=== PATIENT | female | born 1980 | race Caucasian/White ===

== ENCOUNTER → 2018-07-23 | Outpatient (CLI) | payer OTHER ==
[2018-07-23 14:51] LABS: Basophils % (A) 1 %; Eosinophils # (A) 0.1 k/uL (0-0.7); Eosinophils % (A) 3 %; HCT 33.5 % (34.0-46.0); HGB 10.4 gm/dL (11.4-16.0); Hypochromasia Moderate; Lymphocytes # (A) 1.4 k/uL (1.0-4.8); Lymphocytes % (A) 36 %; MCH 24.4 pg (25.0-35.0); MCHC 31.1 g/dL (31.0-37.0); MCV 78.3 fL (80.0-100.0); Mean Platelet Volume 6.2; Monocytes # (A) 0.2 k/uL (0-1.0); Monocytes % (A) 6 %; Neutrophils % (A) 52 %; Platelet Count 349 k/uL (150-450); RBC 4.28 m/uL (3.80-5.40); RDW 15.3 % (11.5-15.5); WBC 3.8 k/uL (3.8-10.6)
== END | disposition home or self-care (01) ==
LOC: LABPAT 13:45
PROVIDERS: ATTEND Obstetrics & Gynecology
DX: Z01.812 Encounter for preprocedural laboratory examination (principal)
CPT/HCPCS: 85025

== ENCOUNTER 2018-07-24 06:46 | Day surgery (SDC) | payer OTHER ==
[2018-07-23 13:11] VITALS: BMI 29.2
[~2018-07-24 06:46] MED LIST: DEXAMETHASONE SOD PHOSPHATE 10 MG/ML 1 ML VIAL IV ONE; HYDROmorphone 1 MG/ML 1 ML SYRINGE IVP PRN; LACTATED RINGERS 1,000 ML IV SCH; MIDAZOLAM 2 MG/2 ML VIAL IV PRN; ONDANSETRON 4 MG/2 ML VIAL IVP ONE; Pre Op ABX Message 1 EACH MISC MISCELLANE ONE; SCOPOLAMINE 1.5MG/72HR PATCH TRANSDERM ONE
[2018-07-24] MEDS ORDERED: LIDOCAINE 1% 20 ML VIAL (10MG/ML) FOR IV START INTRADERMA ONE (07:20)
--- NOTE | 2018-07-24 07:33 | P.HPOB ---
History of Present Illness H&P Date: 07/24/18 Chief Complaint: Menorrhagia 38 year old presents for D&C hysteroscopy and endometrial ablation with NovaSure. Review of Systems All systems: negative Constitutional: Denies chills, Denies fever Eyes: denies blurred vision, denies pain Ears, nose, mouth and throat: Denies headache, Denies sore throat Cardiovascular: Denies chest pain, Denies shortness of breath Respiratory: Denies cough Gastrointestinal: Denies abdominal pain, Denies diarrhea, Denies nausea, Denies vomiting Genitourinary: Denies dysuria, Denies hematuria Musculoskeletal: Denies myalgias Integumentary: Denies pruritus, Denies rash Neurological: Denies numbness, Denies weakness Psychiatric: Denies anxiety, Denies depression Endocrine: Denies fatigue, Denies weight change Past Medical History Past Medical History: GERD/Reflux Additional Past Medical History / Comment(s): "heavy periods" History of Any Multi-Drug Resistant Organisms: None Reported Past Surgical History: Cholecystectomy, Tubal Ligation Past Anesthesia/Blood Transfusion Reactions: No Reported Reaction Additional Past Anesthesia/Blood Transfusion Reaction / Comment(s): no hx blood transfusion Smoking Status: Never smoker - Past Family History Mother Family Medical History: No Reported History Father Additional Family Medical History / Comment(s): heart problems Medications and Allergies Home Medications Medication Instructions Recorded Confirmed Type No Known Home Medications 07/23/18 07/23/18 History Allergies Allergy/AdvReac Type Severity Reaction Status Date / Time No Known Allergies Allergy Verified 07/23/18 13:06 Exam Osteopathic Statement: *. No significant issues noted on an osteopathic structural exam other than those noted in the History and Physical/Consult. Vital Signs Temp Pulse Resp BP Pulse Ox 07/24/18 07:11 97.2 F L 89 18 123/82 98 Heart: RRR Lungs: CTAB ABdomen: soft, nontender Extremeties: neg angeles's Assessment and Plan (1) Menorrhagia Current Visit: Yes Status: Acute Code(s): N92.0 - EXCESSIVE AND FREQUENT MENSTRUATION WITH REGULAR CYCLE SNOMED Code(s): 194041754 Plan: 1. D&C hysteroscopy and endometrial ablation with NovaSure
[2018-07-24] MEDS ORDERED: LIDOCAINE 1% INJ 10MG/ML (20 ML MDV) ONE (08:01)
[2018-07-24] MEDS ORDERED: fentaNYL (PF) 50 MCG/ML 2 ML AMP ONE (08:01)
[2018-07-24] MEDS ORDERED: MIDAZOLAM 2 MG/2 ML VIAL ONE (08:01)
[2018-07-24] MEDS ORDERED: PROPOFOL 10 MG/ML 20 ML VIAL IV ONE (08:01)
[2018-07-24] MEDS ORDERED: KETOROLAC 30 MG/ML 1 ML VIAL ONE (08:01)
--- NOTE | 2018-07-24 08:51 | P.OP ---
Date of Procedure: 07/24/18 Preoperative Diagnosis: 1. Menorrhagia Postoperative Diagnosis: same Procedure(s) Performed: D&C, hysteroscopy, endometrial ablation with NovaSure Anesthesia: RENUKA Surgeon: Susanne Ibanez Estimated Blood Loss (ml): 10 IV fluids (ml): 300 Urine output (ml): 15 Pathology: other (Endometrial curettings) Condition: stable Disposition: PACU Operative Findings: Cavity length 6.5, width 4.9 cm, time of ablation 40 seconds at 175 W. Description of Procedure: Patient is taken the operating room where general anesthesia was obtained without difficulty. She was prepped and draped in normal sterile fashion dorsal lithotomy position, legs placed in the Qumulo cane stirrups. Bladder was drained of all urine. Weighted speculum placed in the vagina and the anterior lip the cervix was grasped with serial tooth tenaculum. The uterus sounded to 11 cm and the cervix under 3.5 cm making the cavity length 6.5 cm. The cervix was dilated to #8 Hegar dilator. Hysteroscopy was then performed. Both ostia were visualized and there was a smooth contour of the uterus. Sharp curet was then gently used to obtain endometrial curettings. The NovaSure was introduced into the uterus with a cavity length of 6.5 cm, width 4.9 cm. after cavity assessment was passed, the time of ablation was 40 seconds at 175 [address]. Hysteroscopy was again performed some areas of ablation were seen and some areas of continued red tissue was noted. All instruments removed from the vagina. Patient tolerated the procedure well, sponge and instrument counts were correct 2 and she was taken to recovery in stable condition.
[2018-07-24 08:53] VITALS: TEMP 97.4
[2018-07-24] MEDS ORDERED: LACTATED RINGERS 1,000 ML IV ONE ×3 (09:04→09:21)
[2018-07-24 10:12] VITALS: RESP 18
[2018-07-24 10:42] VITALS: BP 111/74; PULSE 74
== END 2018-07-24 11:23 | disposition home or self-care (01) ==
LOC: OR 06:46
PROVIDERS: ATTEND Obstetrics & Gynecology
DX: N84.0 Polyp of corpus uteri (principal); K21.9 Gastro-esophageal reflux disease without esophagitis; Z98.51 Tubal ligation status
CPT/HCPCS: 81025; 88305; 58563; J2250; J1100; J2405; J2001; J3010; J1885; J2704

== ENCOUNTER → 2018-08-20 | Outpatient (CLI) | payer OTHER ==
--- NOTE | 2018-08-30 12:29 | MM ---
Reason for exam: screening (asymptomatic). Last mammogram was performed 11 years and 11 months ago. History: Benign excisional biopsy of the right breast. Took hormonal contraceptives for 3 months beginning at age 24. MG Screening Mammo w CAD Bilateral CC and MLO view(s) were taken. Prior study comparison: September 24, 2006, CAD bilateral diagnostic mammogram. The breast tissue is extremely dense which could obscure a lesion on mammography. No discrete abnormality. No significant changes when compared with prior studies. ASSESSMENT: Benign, BI-RAD 2 RECOMMENDATION: Routine screening mammogram of both breasts at age 42.
== END | disposition home or self-care (01) ==
LOC: RADMAMWWP 09:35
PROVIDERS: ATTEND Obstetrics & Gynecology
DX: Z12.31 Encounter for screening mammogram for malignant neoplasm of breast (principal)
CPT/HCPCS: 77067

== ENCOUNTER → 2020-02-25 | Outpatient (CLI) | payer OTHER | END | disposition home or self-care (01) | LOC: LABWHC1 14:13 | PROVIDERS: ATTEND Internal Medicine Nephrology | DX: Z00.5 Encounter for examination of potential donor of organ and tissue (principal) | CPT/HCPCS: 36415 ==

== ENCOUNTER → 2020-02-25 | Outpatient (CLI) | payer OTHER ==
[2020-02-25 16:12] LABS: Basophils % (A) 0 %; Eosinophils # (A) 0.1 k/uL (0-0.7); Eosinophils % (A) 2 %; HCT 31.6 % (34.0-46.0); Hypochromasia Marked; Lymphocytes # (A) 1.4 k/uL (1.0-4.8); Lymphocytes % (A) 26 %; MCH 25.5 pg (25.0-35.0); MCHC 31.6 g/dL (31.0-37.0); MCV 80.7 fL (80.0-100.0); Mean Platelet Volume 7.7; Monocytes # (A) 0.3 k/uL (0-1.0); Monocytes % (A) 5 %; Neutrophils # (A) 3.5 k/uL (1.3-7.7); Neutrophils % (A) 66 %; Platelet Count 390 k/uL (150-450); Poikilocytosis Slight; RBC 3.92 m/uL (3.80-5.40); RDW 14.2 % (11.5-15.5); WBC 5.3 k/uL (3.8-10.6)
== END | disposition home or self-care (01) ==
LOC: LABPAT 14:10
PROVIDERS: ATTEND Obstetrics & Gynecology
DX: Z01.818 Encounter for other preprocedural examination (principal)
CPT/HCPCS: 85025

== ENCOUNTER 2020-03-02 05:50 | Observation (INO) | payer OTHER ==
[2020-03-01 09:46] VITALS: BMI 29.2
[~2020-03-02 05:50] MED LIST changes: -HYDROmorphone 1 MG/ML 1 ML SYRINGE IVP PRN; -MIDAZOLAM 2 MG/2 ML VIAL IV PRN; -Pre Op ABX Message 1 EACH MISC MISCELLANE ONE; -SCOPOLAMINE 1.5MG/72HR PATCH TRANSDERM ONE
[2020-03-02] MEDS ORDERED: ONDANSETRON 4 MG/2 ML VIAL ONE (06:09)
[2020-03-02] MEDS ORDERED: LACTATED RINGERS 1,000 ML IV ONE ×2 (06:20→08:20)
[2020-03-02] MEDS ORDERED: LIDOCAINE 1% (10MG/ML) FOR IV START INTRADERMA ONE (06:20)
--- NOTE | 2020-03-02 06:36 | P.HPOB ---
History of Present Illness H&P Date: 03/02/20 Chief Complaint: menorrhagia 39 year old presents for TLH with da ammy and diagnostic cystoscopy due to menorrhagia and failed ablation. Review of Systems All systems: negative Constitutional: Denies chills, Denies fever Eyes: denies blurred vision, denies pain Ears, nose, mouth and throat: Denies headache, Denies sore throat Cardiovascular: Denies chest pain, Denies shortness of breath Respiratory: Denies cough Gastrointestinal: Denies abdominal pain, Denies diarrhea, Denies nausea, Denies vomiting Genitourinary: Denies dysuria, Denies hematuria Musculoskeletal: Denies myalgias Integumentary: Denies pruritus, Denies rash Neurological: Denies numbness, Denies weakness Psychiatric: Denies anxiety, Denies depression Endocrine: Denies fatigue, Denies weight change Past Medical History Past Medical History: GERD/Reflux Additional Past Medical History / Comment(s): heavy, frequent periods History of Any Multi-Drug Resistant Organisms: None Reported Past Surgical History: Cholecystectomy, Tubal Ligation, Uterine Ablation Past Anesthesia/Blood Transfusion Reactions: No Reported Reaction Additional Past Anesthesia/Blood Transfusion Reaction / Comment(s): no hx. blood transfusion Smoking Status: Never smoker - Past Family History Mother Family Medical History: No Reported History Medications and Allergies Home Medications Medication Instructions Recorded Confirmed Type No Known Home Medications 03/01/20 03/01/20 History Allergies Allergy/AdvReac Type Severity Reaction Status Date / Time No Known Allergies Allergy Verified 03/01/20 09:49 Exam Osteopathic Statement: *. No significant issues noted on an osteopathic structural exam other than those noted in the History and Physical/Consult. Vital Signs Temp Pulse Resp BP Pulse Ox 03/02/20 06:07 97.5 F L 87 18 129/76 98 Intake and Output 03/01/20 03/01/20 03/02/20 14:59 22:59 06:59 Other: Weight 77.111 kg 77.8 kg Heart: Regular rate and rhythm Lungs: Clear to auscultation bilaterally Abdomen: Soft, nontender Extremities: Negative Homans sign Assessment and Plan (1) Menorrhagia Current Visit: No Status: Acute Code(s): N92.0 - EXCESSIVE AND FREQUENT MENSTRUATION WITH REGULAR CYCLE SNOMED Code(s): 884121163 Plan: 1. Total laparoscopic hysterectomy with da Ammy and diagnostic cystoscopy
[2020-03-02 07:03] LABS: African American GFR (CKD) >90 (>60 ml/min/1.73 sqM); Anion Gap 5 mmol/L; Blood Urea Nitrogen 14 mg/dL (7-17); Calcium 9.8 mg/dL (8.4-10.2); Carbon Dioxide 26 mmol/L (22-30); Chloride 108 mmol/L (98-107); Glucose 95 mg/dL (74-99); Non-African American GFR(CKD) >90 (>60 ml/min/1.73 sqM); Potassium 4.6 mmol/L (3.5-5.1); Sodium 139 mmol/L (137-145)
[2020-03-02] MEDS ORDERED: GLYCOPYRROLATE 0.2 MG/ML 2 ML VIAL ONE (07:08)
[2020-03-02] MEDS ORDERED: NEOSTIGMINE 1 MG/ML 10 ML VIAL ONE (07:08)
[2020-03-02] MEDS ORDERED: ROCURONIUM BROMIDE 10 MG/ML 5 ML VIAL IV ONE (07:08)
[2020-03-02] MEDS ORDERED: MIDAZOLAM 2 MG/2 ML VIAL ONE (07:08)
[2020-03-02] MEDS ORDERED: KETOROLAC 30 MG/ML 1 ML VIAL ONE (07:08)
[2020-03-02] MEDS ORDERED: PROPOFOL 10 MG/ML 20 ML VIAL IV ONE (07:08)
[2020-03-02] MEDS ORDERED: fentaNYL (PF) 50 MCG/ML 2 ML AMP ONE (07:08)
[2020-03-02] MEDS ORDERED: SUCCINYLCHOLINE CHLORIDE 100 MG/5 ML SYR IV ONE (07:08)
[2020-03-02] MEDS ORDERED: LIDOCAINE 1% INJ 10MG/ML (20 ML MDV) ONE (07:08)
[2020-03-02] MEDS ORDERED: BUPIVACAINE (PF) 0.25% 30 ML VIAL SQ ONE (07:52)
[2020-03-02] MEDS: HYDROmorphone 0.5 MG/0.5 ML SYRINGE IVP PRN ×4 (08:42→09:02)
--- NOTE | 2020-03-02 08:44 | P.OP ---
Date of Procedure: 03/02/20 Preoperative Diagnosis: 1. menorrhagia Postoperative Diagnosis: 1. menorrhagia Procedure(s) Performed: Total laparoscopic hysterectomy with da Naya and diagnostic cystoscopy Anesthesia: RENUKA Surgeon: Susanne Ibanez Environmental Engineering Assistant #1: Adis Pate Estimated Blood Loss (ml): 200 IV fluids (ml): 700 Urine output (ml): 200 Pathology: other (Uterus and cervix) Condition: stable Disposition: PACU Operative Findings: Normal uterus, tubes, ovaries. Uterus sounded to 10 cm and cervix measured 4 cm. Description of Procedure: Patient taken the operating room where general anesthesia was obtained without difficulty. She is prepped and draped in normal sterile fashion dorsal lithotomy position, legs placed in the Bebeto stirrups. Weighted speculum placed in the vagina and the anterior lip the cervix was grasped with single-tooth tenaculum. The uterus sounded to 10 cm and the cervix diameter was 4 cm. The appropriate manipulator tip and ring were placed on the Yolanda manipulator. The Yolanda manipulator was then placed in the uterus. Stevens catheter was also placed. Attention was then turned to the abdomen and gloves were changed. A 5 mm supraumbilical incision was made the scalpel and a 5 mm optical trocar was placed under direct visualization. 10 cm to the right of this and 2 cm down a 5 mm incision was made and 8 mm da Naya port was placed under direct visualization. Same measurements on the opposite side of the patient's abdomen, the 5 mm incision was made and 8 mm da Naya port was placed under direct visualization. In the left upper quadrant a 10 mm incision was made and a 10 mm optical trocar was placed under direct visualization. The 5 mm optical trocar was then replaced with the 8 mm da Naya camera port. The robot was docked on patient's left side. The camera was introduced and then the monopolar curved scissor and [place] bipolar placed under direct visualization. I broke scrub and went to the physician console. The left utero-ovarian ligament was cauterized with the [place] bipolar and cut with monopolar curved scissors. The left round ligament was cauterized with the [place] bipolar and cut with monopolar curved scissors. The posterior leaf of the broad ligament was taken down using the monopolar curved scissors. Anterior leaf of the broad ligament was then taken down using the monopolar curved scissors. The uterine artery was cauterized with the [place] bipolar and cut with monopolar curved scissors. The bladder flap was then started using the monopolar curved scissors. Attention was then turned to the right side of the patient's anatomy and the right utero-ovarian ligament was cauterized with the [place] bipolar and cut with monopolar curved scissors. The right round ligament was cauterized with the [place] bipolar and cut with monopolar curved scissors. Posterior leaf of the broad ligament was taken down using the monopolar curved scissors and the anterior leaf was taken down using the monopolar curved scissors. The uterine artery was cauterized the [place] bipolar cut with monopolar curved scissors. The bladder flap was then finished on this side. Anterior colpotomy was made using the monopolar curved scissors. The rest of the uterus was from the vaginal cuff by following the ring around with the monopolar curved scissors through the uterosacral ligaments back to the anterior portion. Once the uterus and cervix were amputated they were pulled through the vaginal cuff. Hemostasis was assured. The instruments were changed for the Cardier forcep and the nita suture cut. The vaginal cuff was then closed using O stratafix barbed suture in a running fashion. Hemostasis was again assured and the pelvis was irrigated. All instruments were removed from the abdomen and the robot was undocked. I scrubbed back in to perform a cystoscopy. There were jets from both ureteral orifices. The abdominal incisions were closed with 4-0 Vicryl in a subcuticular fashion. Patient tolerated the procedure well, sponge and instrument counts correct 2 and she was taken to recovery room in stable condition condition
[2020-03-02] MEDS ORDERED: diphenhydrAMINE 50 MG/ML 1 ML VIAL IVP ONE (08:52)
[2020-03-02] MEDS ORDERED: diphenhydrAMINE 50 MG/ML 1 ML VIAL IVP PRN (09:09)
[2020-03-02] MEDS ORDERED: SIMETHICONE 80 MG CHEWABLE PO PRN (09:09)
[2020-03-02] MEDS ORDERED: ONDANSETRON 4 MG/2 ML VIAL IVP PRN (09:09)
[2020-03-02] MEDS ORDERED: METOCLOPRAMIDE 5 MG/ML 2 ML VIAL IVP PRN (09:09)
[2020-03-02] MEDS ORDERED: Acetaminophen-Codeine 300-30mg TAB PO PRN (09:09)
[2020-03-02] MEDS ORDERED: MEPERIDINE 50 MG/ML SYRINGE IVP ONE (09:13)
[2020-03-02] MEDS: KETOROLAC 30 MG/ML 1 ML VIAL IVP PRN ×2 (14:44→21:54)
[2020-03-02] MEDS: Acetaminophen-Codeine 300-30mg TAB PO PRN (18:52)
[2020-03-02] MEDS: LACTATED RINGERS 1,000 ML IV SCH (21:54)
[2020-03-03 00:06] VITALS: RESP 18
[2020-03-03] MEDS: KETOROLAC 30 MG/ML 1 ML VIAL IVP PRN (06:24)
[2020-03-03] MEDS: LACTATED RINGERS 1,000 ML IV SCH (06:26)
[2020-03-03 07:02] LABS: Basophils % (A) 0 %; Eosinophils % (A) 0 %; Hypochromasia Marked; Lymphocytes # (A) 1.1 k/uL (1.0-4.8); Lymphocytes % (A) 11 %; MCH 24.7 pg (25.0-35.0); MCHC 31.5 g/dL (31.0-37.0); MCV 78.5 fL (80.0-100.0); Mean Platelet Volume 7.6; Monocytes # (A) 0.4 k/uL (0-1.0); Monocytes % (A) 4 %; Neutrophils # (A) 8.2 k/uL (1.3-7.7); Neutrophils % (A) 82 %; Platelet Count 341 k/uL (150-450); Poikilocytosis Slight; RBC 3.18 m/uL (3.80-5.40); RDW 14.8 % (11.5-15.5); WBC 9.9 k/uL (3.8-10.6)
[2020-03-03 07:05] LABS: HGB 7.9 gm/dL (11.4-16.0)
[2020-03-03 07:47] VITALS: BP 99/63; PULSE 82; TEMP 98.3
--- NOTE | 2020-03-03 08:13 | P.DS ---
Providers Date of admission: 03/03/20 01:20 Expected date of discharge: 03/03/20 Attending physician: Susanne Ibanez Primary care physician: Stated None - Discharge Diagnosis(es) (1) Menorrhagia Current Visit: No Status: Resolved (2) History of robot-assisted laparoscopic hysterectomy Current Visit: Yes Status: Acute Hospital Course: Patient presented for total laparoscopic hysterectomy and diagnostic cystoscopy for menorrhagia. She underwent this procedure without complication. P ostoperatively her pain is controlled just on a regular diet and passing flatus. She is ambulating and voiding without difficulty. Incisions are clean, dry, intact. Having minimal vaginal spotting. Her hemoglobin from 10-7.9 and she is asymptomatic. She'll be discharged home post operative day #1 in stable condition to follow-up with me in 3 weeks. Patient Condition at Discharge: Stable Plan - Discharge Summary Discharge Rx Participant: Yes New Discharge Prescriptions: New Ibuprofen [Motrin] 600 mg PO Q6HR PRN #30 tab PRN Reason: Mild Pain Or Fever >= 100.5 Acetaminophen-Codeine 300-30mg [Tylenol w/codeine #3] 2 each PO Q6HR PRN #24 tab PRN Reason: Severe Pain Discharge Medication List Acetaminophen-Codeine 300-30mg [Tylenol w/codeine #3] 2 each PO Q6HR PRN #24 tab 03/03/20 [Rx] Ibuprofen [Motrin] 600 mg PO Q6HR PRN #30 tab 03/03/20 [Rx] Follow up Appointment(s)/Referral(s): Susanne Ibanez DO [Doctor of Osteopathic Medicine] - 3 Weeks Discharge Disposition: HOME SELF-CARE
[2020-03-03] MEDS: Acetaminophen-Codeine 300-30mg TAB PO PRN (11:50)
== END 2020-03-03 13:18 | disposition home or self-care (01) ==
LOC: OR 05:50 → 6PED 08:22 → OR 03-03 01:17 → 6PED 03-03 01:20
PROVIDERS: ADMIT Obstetrics & Gynecology; ATTEND Obstetrics & Gynecology
DX: N80.0 Endometriosis of uterus (principal); K21.9 Gastro-esophageal reflux disease without esophagitis; Z90.49 Acquired absence of other specified parts of digestive tract
CPT/HCPCS: 58572; S2900; 80048; 81025; 85025; 86850; 86900; 86901; 88307

== ENCOUNTER 2020-10-19 13:04 | Inpatient (IN) | payer OTHER ==
[2020-10-19] MEDS ORDERED: ALBUTEROL HFA INHALER INHALATION STA (13:45)
[2020-10-19] MEDS ORDERED: SODIUM CHLORIDE 0.9% 1,000 ML IV STA (13:46)
--- NOTE | 2020-10-19 14:20 | ED ---
SOB HPI - General Chief Complaint: Shortness of Breath Stated Complaint: Covid+/coughing up blood Time Seen by Provider: 10/19/20 13:35 Source: patient Mode of arrival: ambulatory Limitations: no limitations - History of Present Illness Initial Comments: Patient is a 40-year-old female presenting to the emergency Department with complaints of shortness of breath, coughing up blood has been worsening over the past few days. Patient was diagnosed with Covid on October 09, she was having the normal fever, bodyaches and chills along with her cough. Patient states over the last 2 days she feels like her shortness of breath is getting worse and she is having intermittent pains when she has coughing. She states today while she was coughing she noticed a little bit of blood in her sputum as well. She states she feels like it's hard to get in a deep breath. She does admit to some nausea, no vomiting, no more fevers. She denies history of asthma, she is a nonsmoker, no heart disease history. Upon arrival to the ER, she is afebrile, tachycardia at 114, 95% on room air. - Related Data Home Medications Medication Instructions Recorded Confirmed No Known Home Medications 10/19/20 10/19/20 Allergies Allergy/AdvReac Type Severity Reaction Status Date / Time No Known Allergies Allergy Verified 10/19/20 15:26 Review of Systems ROS Statement: Those systems with pertinent positive or pertinent negative responses have been documented in the HPI. ROS Other: All systems not noted in ROS Statement are negative. Past Medical History Past Medical History: GERD/Reflux Additional Past Medical History / Comment(s): heavy, frequent periods History of Any Multi-Drug Resistant Organisms: None Reported Past Surgical History: Cholecystectomy, Tubal Ligation, Uterine Ablation Past Anesthesia/Blood Transfusion Reactions: No Reported Reaction Additional Past Anesthesia/Blood Transfusion Reaction / Comment(s): no hx. blood transfusion Past Psychological History: No Psychological Hx Reported Smoking Status: Never smoker Past Alcohol Use History: Occasional Past Drug Use History: None Reported - Past Family History Mother Family Medical History: No Reported History General Exam - General Exam Comments Initial Comments: GENERAL: Patient is well-developed and well-nourished. Patient is nontoxic and in no acute distress. HEAD: Atraumatic, normocephalic. EYES: Pupils equal round and reactive to light, extraocular movements intact, sclera anicteric, conjunctiva are normal. Eyelids were unremarkable. ENT: TMs normal, nares patent, oropharynx clear without exudates. Moist mucous membranes. NECK: Normal range of motion, supple without lymphadenopathy or JVD. LUNGS: Unlabored respirations. Breath sounds clear to auscultation bilaterally and equal. No wheezes rales or rhonchi. HEART: Tachycardia rate and rhythm without murmurs, rubs or gallops. ABDOMEN: Soft, nontender, normoactive bowel sounds. No guarding, no rebound. No masses appreciated. : Deferred MUSCULOSKELETAL: Normal extremities with adequate strength and normal range of motion, no pitting or edema. No clubbing or cyanosis. NEUROLOGICAL: Patient is alert and oriented x 3. Motor and sensory are also intact. Cranial nerves II through XII grossly intact. Symmetrical smile. Normal speech, normal gait. PSYCH: Normal mood, normal affect. SKIN: Warm, Dry, normal turgor, no rashes or lesions noted. Limitations: no limitations Course Vital Signs 10/19/20 13:06 Temperature 98.2 F Pulse Rate 114 H Respiratory 22 Rate Blood Pressure 127/83 O2 Sat by Pulse 95 Oximetry Medical Decision Making - Medical Decision Making Patient is a 40-year-old female here with Covid symptoms and been increasing over the past 2 days, cough, shortness of breath. She was diagnosed on October 09. No more fevers however she is right tachycardia at 114. EKG shows sinus tach, no other acute process. Chest x-ray shows low lung volumes, patchy bibasilar infiltrates. I am showing normal white count, CRP is elevated at 47, LDH is 651. Lactic acid is normal at 1.1. D-dimer did come back elevated at 1.21. CTA was ordered which revealed multifocal patchy groundglass infiltrates greatest in the lower lungs, positive for PE involving segmental and subsegmental branches of the right lower lobe. Patient vital signs remained stable, 95% on room air. She was started on high-dose heparin. She will be admitted, patient accepted by Dr. Irizarry. I will place Dr. Navarrete and Dr. Preciado on consult. Patient is in agreement with this plan of care. Case discussed Dr. Ibarra. - Lab Data Result diagrams: 10/19/20 14:09 10/19/20 14:09 Lab Results 10/19/20 10/19/20 10/19/20 Range/Units 14:09 14:09 14:09 WBC 8.3 (3.8-10.6) k/uL RBC 5.09 (3.80-5.40) m/uL Hgb 14.7 (11.4-16.0) gm/dL Hct 41.1 (34.0-46.0) % MCV 80.6 (80.0-100.0) fL MCH 28.8 (25.0-35.0) pg MCHC 35.8 (31.0-37.0) g/dL RDW 15.8 H (11.5-15.5) % Plt Count 262 (150-450) k/uL MPV 6.9 Neutrophils % 82 % Lymphocytes % 12 % Monocytes % 3 % Eosinophils % 1 % Basophils % 0 % Neutrophils # 6.8 (1.3-7.7) k/uL Lymphocytes # 1.0 (1.0-4.8) k/uL Monocytes # 0.3 (0-1.0) k/uL Eosinophils # 0.1 (0-0.7) k/uL Basophils # 0.0 (0-0.2) k/uL PT 10.4 (9.0-12.0) sec INR 1.0 (<1.2) APTT 22.2 (22.0-30.0) sec D-Dimer 1.21 H (<0.60) mg/L FEU Sodium 138 (137-145) mmol/L Potassium 3.8 (3.5-5.1) mmol/L Chloride 103 (98-107) mmol/L Carbon Dioxide 27 (22-30) mmol/L Anion Gap 8 mmol/L BUN 15 (7-17) mg/dL Creatinine 0.62 (0.52-1.04) mg/dL Est GFR (CKD-EPI)AfAm >90 (>60 ml/min/1.73 sqM) Est GFR (CKD-EPI)NonAf >90 (>60 ml/min/1.73 sqM) Glucose 103 H (74-99) mg/dL Plasma Lactic Acid Jaskaran (0.7-2.0) mmol/L Calcium 10.2 (8.4-10.2) mg/dL Magnesium 1.9 (1.6-2.3) mg/dL Total Bilirubin 1.2 (0.2-1.3) mg/dL AST 31 (14-36) U/L ALT 27 (4-34) U/L Alkaline Phosphatase 133 H (38-126) U/L Lactate Dehydrogenase 651 H (313-618) U/L C-Reactive Protein 47.8 H (<10.0) mg/L Total Protein 7.2 (6.3-8.2) g/dL Albumin 4.1 (3.5-5.0) g/dL 10/19/20 Range/Units 14:09 WBC (3.8-10.6) k/uL RBC (3.80-5.40) m/uL Hgb (11.4-16.0) gm/dL Hct (34.0-46.0) % MCV (80.0-100.0) fL MCH (25.0-35.0) pg MCHC (31.0-37.0) g/dL RDW (11.5-15.5) % Plt Count (150-450) k/uL MPV Neutrophils % % Lymphocytes % % Monocytes % % Eosinophils % % Basophils % % Neutrophils # (1.3-7.7) k/uL Lymphocytes # (1.0-4.8) k/uL Monocytes # (0-1.0) k/uL Eosinophils # (0-0.7) k/uL Basophils # (0-0.2) k/uL PT (9.0-12.0) sec INR (<1.2) APTT (22.0-30.0) sec D-Dimer (<0.60) mg/L FEU Sodium (137-145) mmol/L Potassium (3.5-5.1) mmol/L Chloride (98-107) mmol/L Carbon Dioxide (22-30) mmol/L Anion Gap mmol/L BUN (7-17) mg/dL Creatinine (0.52-1.04) mg/dL Est GFR (CKD-EPI)AfAm (>60 ml/min/1.73 sqM) Est GFR (CKD-EPI)NonAf (>60 ml/min/1.73 sqM) Glucose (74-99) mg/dL Plasma Lactic Acid Jaskaran 1.1 (0.7-2.0) mmol/L Calcium (8.4-10.2) mg/dL Magnesium (1.6-2.3) mg/dL Total Bilirubin (0.2-1.3) mg/dL AST (14-36) U/L ALT (4-34) U/L Alkaline Phosphatase (38-126) U/L Lactate Dehydrogenase (313-618) U/L C-Reactive Protein (<10.0) mg/L Total Protein (6.3-8.2) g/dL Albumin (3.5-5.0) g/dL - EKG Data EKG Comments: Sinus tachycardia, left axis deviation, inferior infarct age undetermined, no signs of acute process. Ventricular rate 118, MI interval 156, QT 324. Critical Care Time Critical Care Time: Yes Total Critical Care Time: 35 (Positive Covid, elevated d-dimer, CTA revealed PE. Patient was started on high-dose heparin, admitted.) Disposition Clinical Impression: Pulmonary embolism, Pneumonia due to COVID-19 virus Disposition: ADMITTED IP TO THIS [facility] Condition: Stable Is patient prescribed a controlled substance at d/c from ED?: No Referrals: None,Stated [Primary Care Provider] - 1-2 days Decision Date: 10/19/20 Decision Time: 16:25
[2020-10-19 14:32] LABS: Basophils % (A) 0 %; Eosinophils # (A) 0.1 k/uL (0-0.7); Eosinophils % (A) 1 %; HCT 41.1 % (34.0-46.0); HGB 14.7 gm/dL (11.4-16.0); Lymphocytes % (A) 12 %; MCH 28.8 pg (25.0-35.0); MCHC 35.8 g/dL (31.0-37.0); MCV 80.6 fL (80.0-100.0); Mean Platelet Volume 6.9; Monocytes # (A) 0.3 k/uL (0-1.0); Monocytes % (A) 3 %; Neutrophils # (A) 6.8 k/uL (1.3-7.7); Neutrophils % (A) 82 %; Platelet Count 262 k/uL (150-450); RBC 5.09 m/uL (3.80-5.40); RDW 15.8 % (11.5-15.5); WBC 8.3 k/uL (3.8-10.6)
[2020-10-19 14:50] LABS: Partial Thromboplastin Time 22.2 sec (22.0-30.0); Prothrombin Time 10.4 sec (9.0-12.0)
--- NOTE | 2020-10-19 14:50 | XR ---
EXAMINATION TYPE: XR chest 1V portable DATE OF EXAM: 10/19/2020 COMPARISON: NONE HISTORY: COVID POSITIVE, HEMOPTYSIS, SOB TECHNIQUE: Single AP portable frontal upright view of the chest is obtained. FINDINGS: There is faint bibasilar opacities. Low lung volumes. No pleural effusion or pneumothorax seen bilaterally. The cardiac silhouette size is within normal limits. The osseous structures are intact. Cholecystectomy clips noted. IMPRESSION: Low lung volumes with patchy bibasilar acute atelectasis and/or infiltrates.
[2020-10-19 14:57] LABS: Potassium 3.8 mmol/L (3.5-5.1)
[2020-10-19 14:59] LABS: ALT 27 U/L (4-34); AST 31 U/L (14-36); African American GFR (CKD) >90 (>60 ml/min/1.73 sqM); Albumin 4.1 g/dL (3.5-5.0); Alkaline Phosphatase 133 U/L (38-126); Anion Gap 8 mmol/L; Blood Urea Nitrogen 15 mg/dL (7-17); C Reactive Protein 47.8 mg/L (<10.0); Calcium 10.2 mg/dL (8.4-10.2); Carbon Dioxide 27 mmol/L (22-30); Chloride 103 mmol/L (98-107); Glucose 103 mg/dL (74-99); LDH 651 U/L (313-618); Magnesium 1.9 mg/dL (1.6-2.3); Non-African American GFR(CKD) >90 (>60 ml/min/1.73 sqM); Sodium 138 mmol/L (137-145); Total Bilirubin 1.2 mg/dL (0.2-1.3); Total Protein 7.2 g/dL (6.3-8.2)
--- NOTE | 2020-10-19 16:03 | CT ---
EXAMINATION TYPE: CT chest angio for PE DATE OF EXAM: 10/19/2020 COMPARISON: Radiograph 10/19/2020 HISTORY: 40-year-old female COVID positive, dyspnea and elevated d-dimer. TECHNIQUE: Contiguous axial scanning of the chest performed with IV Contrast, patient injected with 1 00 mL of Isovue 300. Coronal/sagittal MIP reconstructions performed. CT DLP: 284.8 mGycm Automated exposure control for dose reduction was used. FINDINGS: Heart normal size without pericardial effusion. No flattening of the interventricular septum or reflu x of contrast into the hepatic veins. Aorta normal caliber with a bovine configuration to the aortic arch. No thoracic lymphadenopathy seen by CT size criteria. While there is satisfactory opacification of the pulmonary arterial system, there is diffuse breathin g motion limiting assessment for pulmonary emboli. There appears to be segmental and subsegmental bra nch emboli to the right lower lobe. Patchy groundglass changes greatest in the mid and lower lungs, right greater than left showing a bas ilar and peripheral/peribronchovascular distribution. No pleural effusion. Small hiatal hernia. Visualized upper abdomen otherwise shows no gross abnormal. Bones: No osseous destructive process. IMPRESSION: 1. MULTIFOCAL PATCHY GROUNDGLASS INFILTRATES GREATEST IN THE LOWER LUNGS. CORRELATE FOR COVID PNEUMON IA. 2. EXAM POSITIVE FOR PULMONARY EMBOLI INVOLVING SEGMENTAL AND SUBSEGMENTAL BRANCHES OF THE BASILAR RI GHT LOWER LOBE. MILD OVERALL BURDEN. Findings called to the ER and given to NICOLA Treviño at 4:00 PM.
[2020-10-19] MEDS ORDERED: HEPARIN SODIUM,PORCINE 5,000 UNIT/ML 1 ML VIAL IV PRN (16:22)
[2020-10-19] MEDS ORDERED: HEPARIN SODIUM,PORCINE 10,000 UNIT/ML 1 ML VIAL IV ONE (16:22)
[2020-10-19] MEDS ORDERED: ONDANSETRON 4 MG/2 ML VIAL IVP PRN (16:26)
[2020-10-19] MEDS ORDERED: NALOXONE 0.4 MG/ML 1 ML VIAL IV PRN (16:26)
[2020-10-19] MEDS ORDERED: ACETAMINOPHEN TAB 325 MG TAB PO PRN (16:26)
[2020-10-19] MEDS ORDERED: HEPARIN SOD,PORK IN 0.45% NACL 25,000 UNIT in 0.45% NACL 1 250ML.BAG IV SCH (16:30)
[2020-10-19] MEDS: HYDROcodone/APAP 5-325MG 1 EACH TAB PO PRN ×2 (19:10→22:41)
[2020-10-20] MEDS ORDERED: KETOROLAC 15 MG/ML 1 ML VIAL IVP STA (01:50)
[2020-10-20] MEDS ORDERED: LORazepam 0.5 MG TAB PO PRN (01:51)
[2020-10-20] MEDS ORDERED: KETOROLAC 15 MG/ML 1 ML VIAL IVP SCH (08:00)
[2020-10-20] MEDS: KETOROLAC 15 MG/ML 1 ML VIAL IVP PRN ×3 (08:39→21:12)
[2020-10-20 09:44] LABS: Basophils % (A) 0 %; Eosinophils # (A) 0.1 k/uL (0-0.7); Eosinophils % (A) 1 %; HCT 34.4 % (34.0-46.0); Lymphocytes # (A) 0.8 k/uL (1.0-4.8); Lymphocytes % (A) 14 %; MCH 28.7 pg (25.0-35.0); MCV 82.2 fL (80.0-100.0); Monocytes # (A) 0.2 k/uL (0-1.0); Monocytes % (A) 4 %; Neutrophils # (A) 4.8 k/uL (1.3-7.7); Neutrophils % (A) 80 %; Platelet Count 252 k/uL (150-450); RBC 4.19 m/uL (3.80-5.40); RDW 15.9 % (11.5-15.5)
--- NOTE | 2020-10-20 10:04 | P.CNPUL ---
History of Present Illness Consult date: 10/20/20 Reason for consult: dyspnea History of present illness: 10-year-old female patient who came into the ED with symptoms of shortness of breath, cough. She was diagnosed having COVID 19 back in 10/09/2019. Over the past 2 days, the patient felt like she was getting more short of breath and she was having intermittent cough and chest aching limited hemoptysis. She is a nonsmoker.. The patient came into the emergency and the patient was afebrile. She was slightly tachycardic with a heart rate of 114, pulse ox was 95% on room air oxygen. The patient had a white cell count of 6 with a hemoglobin of 12 and a platelet count of 252. D-dimer was 1.21. Rest of the coagulation profile was within normal. BUN was 15 with a creatinine of 0.6 and sodium was 138. Rest of the blood work showed a AST of 31, ALT of 27, LDH was 651, C-reactive protein was 47.8. A repeat COVID 19 testing came back negative and the patient had a procalcitonin level of 0.04. For that reason she came into the hospital. Chest x-ray was within normal limits. The patient had a CT angiogram of the burst department that showed multifocal patchy groundglass pulmonary infiltrates more so in the lower lungs and the patient had also positive pulmonary embolism inv olving the segmental and subsegmental branches of the basilar right lower lobe. For that reason, the patient was started on IV heparin was hospitalized. This morning, she is on room air oxygen with a pulse ox of 95%. No leg swelling. No calf pain or tenderness. No previous history of DVT or pulmonary embolism. Review of Systems Constitutional: Denies chills, Denies fever Eyes: denies as per HPI, denies blurred vision, denies bulging eye, denies decreased vision, denies diplopia, denies discharge, denies dry eye, denies irritation, denies itching, denies pain, denies photophobia, denies loss of peripheral vision, denies loss of vision, denies tunnel vision/blind spots Ears: deny: decreased hearing, ear discharge, earache, tinnitus Ears, nose, mouth and throat: Denies headache, Denies sore throat Breasts: absent: as per HPI, change in shape, gynecomastia, masses, nipple discharge, pain, skin changes, swelling Cardiovascular: Reports decreased exercise tolerance, Reports dyspnea on exertion Respiratory: Reports dyspnea, Reports hemoptysis Gastrointestinal: Reports as per HPI, Reports heartburn Genitourinary: Reports as per HPI Menstruation: Reports as per HPI Musculoskeletal: Reports as per HPI Musculoskeletal: absent: ankle pain, ankle stiffness, ankle swelling, as per HPI, elbow pain, elbow stiffness, elbow swelling, foot pain, foot stiffness, foot swelling, hand pain, hand stiffness, hand swelling, hip pain, hip stiffness, hip swelling, knee pain, knee stiffness, knee swelling, shoulder pain, shoulder stiffness, shoulder swelling, wrist pain, wrist stiffness, wrist swelling Integumentary: Reports as per HPI Neurological: Reports as per HPI Psychiatric: Reports as per HPI Endocrine: Reports as per HPI Hematologic/Lymphatic: Reports as per HPI Allergic/Immunologic: Reports as per HPI Past Medical History Past Medical History: GERD/Reflux Additional Past Medical History / Comment(s): Covid 19 infection on 10/09/2020 History of Any Multi-Drug Resistant Organisms: None Reported Past Surgical History: Cholecystectomy, Hysterectomy, Tubal Ligation, Uterine Ablation Past Anesthesia/Blood Transfusion Reactions: No Reported Reaction Additional Past Anesthesia/Blood Transfusion Reaction / Comment(s): no hx. blood transfusion Past Psychological History: No Psychological Hx Reported Smoking Status: Never smoker Past Alcohol Use History: Occasional Past Drug Use History: None Reported - Past Family History Mother Family Medical History: No Reported History Father Family Medical History: CVA/TIA, Hypertension Additional Family Medical History / Comment(s): "blood clots", mechanical valve Medications and Allergies Home Medications Medication Instructions Recorded Confirmed Type No Known Home Medications 10/19/20 10/19/20 History Allergies Allergy/AdvReac Type Severity Reaction Status Date / Time No Known Allergies Allergy Verified 10/19/20 15:26 Physical Exam Vitals: Vital Signs Temp Pulse Pulse Resp BP BP Pulse Ox 10/20/20 04:00 98 F 92 19 108/67 95 10/20/20 02:00 107 H 10/19/20 22:46 98.4 F 107 H 20 122/82 95 10/19/20 20:14 99.1 F 128 H 18 135/83 94 L 10/19/20 17:00 97 20 127/69 97 10/19/20 13:06 98.2 F 114 H 22 127/83 95 Intake and Output 10/19/20 10/20/20 10/20/20 22:59 06:59 14:59 Intake Total 95.772 120 Balance 95.772 120 Intake: Intake, IV Titration 95.772 Amount Heparin Sod,Pork in 0.45% 95.772 NaCl 25,000 unit In 0.45 % NaCl 1 250ml.bag @ 18 UNITS/KG/HR 13.88 mls/hr IV .Q18H1M [facility] Rx#: [id number] Oral 120 Other: Voiding Method Toilet Toilet # Voids 2 1 Weight 77.111 kg 76.8 kg The patient appeared well nourished and normally developed. Vital signs as documented. Head exam is unremarkable. No scleral icterus or corneal arcus noted. Neck is without jugular venous distension, thyromegaly, or carotid bruits. Carotid upstrokes are brisk bilaterally. Lungs are clear to auscultation and percussion. Cardiac exam reveals the PMI to be normally sized and situated. Rhythm is regular. First and second heart sounds normal. No murmurs, rubs or gallops. Abdominal exam reveals normal bowel sounds, no masses, no organomegaly and no aortic enlargement. Extremities are nonedematous and both femoral and pedal pulses are normal.Examination of the skin revealed no evidence of significant rashes, suspicious appearing nevi or other concerning lesions.Neurologically, the patient is awake and alert and the patient does not have any focal neurological deficit. Cranial nerves are essentially intact. Results - Laboratory Findings CBC and BMP: 10/20/20 09:09 10/19/20 14:09 ABG WBC 6.0 k/uL (3.8-10.6) 10/20/20 09:09 RBC 4.19 m/uL (3.80-5.40) 10/20/20 09:09 Hgb 12.0 gm/dL (11.4-16.0) 10/20/20 09:09 Hct 34.4 % (34.0-46.0) 10/20/20 09:09 MCV 82.2 fL (80.0-100.0) 10/20/20 09:09 MCH 28.7 pg (25.0-35.0) 10/20/20 09:09 MCHC 35.0 g/dL (31.0-37.0) 10/20/20 09:09 RDW 15.9 % (11.5-15.5) H 10/20/20 09:09 Plt Count 252 k/uL (150-450) 10/20/20 09:09 MPV 7.0 10/20/20 09:09 Neutrophils % 80 % 10/20/20 09:09 Lymphocytes % 14 % 10/20/20 09:09 Monocytes % 4 % 10/20/20 09:09 Eosinophils % 1 % 10/20/20 09:09 Basophils % 0 % 10/20/20 09:09 Neutrophils # 4.8 k/uL (1.3-7.7) 10/20/20 09:09 Lymphocytes # 0.8 k/uL (1.0-4.8) L 10/20/20 09:09 Monocytes # 0.2 k/uL (0-1.0) 10/20/20 09:09 Eosinophils # 0.1 k/uL (0-0.7) 10/20/20 09:09 Basophils # 0.0 k/uL (0-0.2) 10/20/20 09:09 PT 10.4 sec (9.0-12.0) 10/19/20 14:09 INR 1.0 (<1.2) 10/19/20 14:09 APTT 72.8 sec (22.0-30.0) H 10/20/20 09:09 D-Dimer 1.21 mg/L FEU (<0.60) H 10/19/20 14:09 Sodium 138 mmol/L (137-145) 10/19/20 14:09 Potassium 3.8 mmol/L (3.5-5.1) 10/19/20 14:09 Chloride 103 mmol/L (98-107) 10/19/20 14:09 Carbon Dioxide 27 mmol/L (22-30) 10/19/20 14:09 Anion Gap 8 mmol/L 10/19/20 14:09 BUN 15 mg/dL (7-17) 10/19/20 14:09 Creatinine 0.62 mg/dL (0.52-1.04) 10/19/20 14:09 Est GFR (CKD-EPI)AfAm >90 (>60 ml/min/1.73 sqM) 10/19/20 14:09 Est GFR (CKD-EPI)NonAf >90 (>60 ml/min/1.73 sqM) 10/19/20 14:09 Glucose 103 mg/dL (74-99) H 10/19/20 14:09 Plasma Lactic Acid Jaskaran 1.1 mmol/L (0.7-2.0) 10/19/20 14:09 Calcium 10.2 mg/dL (8.4-10.2) 10/19/20 14:09 Magnesium 1.9 mg/dL (1.6-2.3) 10/19/20 14:09 Total Bilirubin 1.2 mg/dL (0.2-1.3) 10/19/20 14:09 AST 31 U/L (14-36) 10/19/20 14:09 ALT 27 U/L (4-34) 10/19/20 14:09 Alkaline Phosphatase 133 U/L (38-126) H 10/19/20 14:09 Lactate Dehydrogenase 651 U/L (313-618) H 10/19/20 14:09 C-Reactive Protein 47.8 mg/L (<10.0) H 10/19/20 14:09 Total Protein 7.2 g/dL (6.3-8.2) 10/19/20 14:09 Albumin 4.1 g/dL (3.5-5.0) 10/19/20 14:09 Procalcitonin 0.04 ng/mL (0.02-0.09) 10/19/20 14:09 Coronavirus (PCR) Not Detected (Not Detectd) 10/19/20 19:30 PT/INR, D-dimer PT 10.4 sec (9.0-12.0) 10/19/20 14:09 INR 1.0 (<1.2) 10/19/20 14:09 D-Dimer 1.21 mg/L FEU (<0.60) H 10/19/20 14:09 Abnormal lab findings: Abnormal Labs 10/19/20 10/19/20 10/19/20 14:09 14:09 14:09 RDW 15.8 H Lymphocytes # APTT D-Dimer 1.21 H Glucose 103 H Alkaline Phosphatase 133 H Lactate Dehydrogenase 651 H C-Reactive Protein 47.8 H 10/20/20 10/20/20 10/20/20 00:28 09:09 09:09 RDW 15.9 H Lymphocytes # 0.8 L APTT >200.0 H* 72.8 H D-Dimer Glucose Alkaline Phosphatase Lactate Dehydrogenase C-Reactive Protein - Diagnostic Findings Chest x-ray: image reviewed CT scan - chest: image reviewed Assessment and Plan Plan: 1 Acute bilateral lower lobe pulmonary embolism with the potential of a pulmonary infarct involving the right lower lobe. This was a provoked event following Covid 19 infection as the patient was infected with Covid 19 on 10/09/2020 and subsequently she was a relatively inactive and sedentary. She does have a family history for pulmonary embolism in her father. There may be some underlying genetic predisposition also. For now, clearly the patient's presentation is consistent with a post COVID 19 pulmonary embolism. An ongoing Covid 19 related pneumonia is felt to be less likely. 2 Covid 19 infection on 10/09/2020 3 mild elevation of the inflammatory markers including LDH and CRP and the d- dimer was at 1.2 4 hemoptysis secondary to above 5 shortness of breath secondary to above Plan IV heparin Transition this patient to Eliquis and approval will be obtained from insurance regarding oral anticoagulants as the patient will need at least 3-6 months of anticoagulation with Eliquis for this provoked pulmonary embolism Doppler of the lower extremities Echocardiogram to assess LV function and RV function and pulmonary hypertension Hypercoagulable workup on outpatient basis Early mobility Anticipate some pain related to pulmonary embolism/infarct in the right lower chest area. Patient is on Toradol for pain. Provide the patient incentive spirometer.
--- NOTE | 2020-10-20 10:44 | US ---
EXAMINATION TYPE: US venous doppler duplex LE BI DATE OF EXAM: 10/20/2020 10:00 AM COMPARISON: NONE CLINICAL HISTORY: Pulmonary emboli. PE SIDE PERFORMED: Bilateral TECHNIQUE: The lower extremity deep venous system is examined utilizing real time linear array sonog pradip with graded compression, doppler sonography and color-flow sonography. VESSELS IMAGED: Common Femoral Vein Deep Femoral Vein Greater Saphenous Vein * Femoral Vein Popliteal Vein Small Saphenous Vein * Proximal Calf Veins (* superficial vessels) Right Leg: Negative for DVT Left Leg: Negative for DVT IMPRESSION: 1. Bilateral lower extremity ultrasound negative for deep venous thrombosis.
--- NOTE | 2020-10-20 10:45 | P.CONS ---
History of Present Illness - Reason for Consult Consult date: 10/20/20 Pulmonary Embolism Requesting physician: Nell Treviño - Chief Complaint provoked - History of Present Illness Mrs. Munguia presented to emergency with increased shortness of breath. She was diagnosed having COVID 19 back in 10/09/2019. She is a nonsmoker.She had adm itted to productive cough with small amounts of hemotysis. CTA revealed positive pulmonary embolism involving segmental and subsegmental branches RLL. IV heparin initiated. Also present patchy groundglass infiltrates in lower lungs, pulmonary is following. Venous doppler pending. No history of dvt or PE. Review of Systems All systems: negative Constitutional: Reports as per HPI Past Medical History Past Medical History: GERD/Reflux Additional Past Medical History / Comment(s): Covid 19 infection on 10/09/2020 History of Any Multi-Drug Resistant Organisms: None Reported Past Surgical History: Cholecystectomy, Hysterectomy, Tubal Ligation, Uterine Ablation Past Anesthesia/Blood Transfusion Reactions: No Reported Reaction Additional Past Anesthesia/Blood Transfusion Reaction / Comm: no hx. blood transfusion Past Psychological History: No Psychological Hx Reported Smoking Status: Never smoker Past Alcohol Use History: Occasional Past Drug Use History: None Reported - Past Family History Mother Family Medical History: No Reported History Father Family Medical History: CVA/TIA, Hypertension Additional Family Medical History / Comment(s): "blood clots", mechanical valve Medications and Allergies Home Medications Medication Instructions Recorded Confirmed Type Apixaban [Eliquis Starter Pack 0 mg PO DIRECTED 30 Days #1 pack 10/20/20 Rx (for VTE)] Allergies Allergy/AdvReac Type Severity Reaction Status Date / Time No Known Allergies Allergy Verified 10/19/20 15:26 Physical Exam Vitals: Vital Signs Temp Pulse Pulse Resp BP BP Pulse Ox 10/20/20 04:00 98 F 92 19 108/67 95 10/20/20 02:00 107 H 10/19/20 22:46 98.4 F 107 H 20 122/82 95 10/19/20 20:14 99.1 F 128 H 18 135/83 94 L 10/19/20 17:00 97 20 127/69 97 10/19/20 13:06 98.2 F 114 H 22 127/83 95 Intake and Output 10/19/20 10/20/20 10/20/20 22:59 06:59 14:59 Intake Total 95.772 120 Balance 95.772 120 Intake: Intake, IV Titration 95.772 Amount Heparin Sod,Pork in 0.45% 95.772 NaCl 25,000 unit In 0.45 % NaCl 1 250ml.bag @ 18 UNITS/KG/HR 13.88 mls/hr IV .Q18H1M [facility] Rx#: [id number] Oral 120 Other: Voiding Method Toilet Toilet # Voids 2 1 Weight 77.111 kg 76.8 kg - Constitutional General appearance: cooperative, mild distress - EENT Eyes: EOMI ENT: NA/AT - Neck Neck: normal ROM - Respiratory Respiratory: bilateral: diminished, rhonchi - Cardiovascular 123 - Gastrointestinal General gastrointestinal: normal bowel sounds, soft - Integumentary Integumentary: pale - Neurologic Neurologic: CNII-XII intact - Musculoskeletal Musculoskeletal: strength equal bilaterally - Psychiatric Psychiatric: A&O x's 3, appropriate affect, intact judgment & insight Results CBC & Chem 7: 10/20/20 09:09 10/19/20 14:09 Labs: Abnormal Lab Results - Last 24 Hours (Table) 10/19/20 10/19/20 10/19/20 Range/Units 14:09 14:09 14:09 RDW 15.8 H (11.5-15.5) % Lymphocytes # (1.0-4.8) k/uL APTT (22.0-30.0) sec D-Dimer 1.21 H (<0.60) mg/L FEU Glucose 103 H (74-99) mg/dL Alkaline Phosphatase 133 H (38-126) U/L Lactate Dehydrogenase 651 H (313-618) U/L C-Reactive Protein 47.8 H (<10.0) mg/L 10/20/20 10/20/20 10/20/20 Range/Units 00:28 09:09 09:09 RDW 15.9 H (11.5-15.5) % Lymphocytes # 0.8 L (1.0-4.8) k/uL APTT >200.0 H* 72.8 H (22.0-30.0) sec D-Dimer (<0.60) mg/L FEU Glucose (74-99) mg/dL Alkaline Phosphatase (38-126) U/L Lactate Dehydrogenase (313-618) U/L C-Reactive Protein (<10.0) mg/L CT scan - chest: report reviewed Venous US: report reviewed Assessment and Plan (1) Pneumonia due to COVID-19 virus Current Visit: Yes Status: Acute Code(s): U07.1 - COVID-19; J12.82 - Pneumonia due to coronavirus disease 2018 SNOMED Code(s): 597785093951440284 (2) Pulmonary embolism Current Visit: Yes Status: Acute Code(s): I26.99 - OTHER PULMONARY EMBOLISM WITHOUT ACUTE COR PULMONALE SNOMED Code(s): 02698984 Plan: Provoked Pulmonary Embolism - COvid: - Check Antiphodpholipid Antibodies - Eliquis plan 6 months as long as no other causative factors - PLan 6 months of anticoagulation Physician Attest: I have completed the full history and physical and agree with above dictation, dictated as a scribe. Follow-up Dr. Preciado 4-6 weeks
[2020-10-20] MEDS: HYDROcodone/APAP 5-325MG 1 EACH TAB PO PRN ×2 (11:58→18:59)
[2020-10-20] MEDS: APIXABAN 5 MG TAB PO SCH ×3 (11:59→21:13)
--- NOTE | 2020-10-20 12:44 | ECHOF ---
Referral Reason:Pulmonary emboli MEASUREMENTS -------- HEIGHT: 162.6 cm WEIGHT: 76.7 kg BP: 110/75 RVIDd: 2.4 cm (< 3.3) IVSd: 1.0 cm (0.6 - 1.1) LVIDd: 4.3 cm (3.9 - 5.3) LVPWd: 1.0 cm (0.6 - 1.1) IVSs: 1.4 cm LVIDs: 2.8 cm LVPWs: 1.4 cm LA Diam: 2.8 cm (2.7 - 3.8) LAESV Index (A-L): 15.53 ml/m Ao Diam: 2.4 cm (2.0 - 3.7) AV Cusp: 1.8 cm (1.5 - 2.6) MV EXCURSION: 21.432 mm (> 18.000) MV EF SLOPE: 156 mm/s (70 - 150) EPSS: 0.5 cm MV E Hiren: 0.86 m/s MV DecT: 232 ms MV A Hiren: 0.88 m/s MV E/A Ratio: 0.98 FINDINGS -------- Sinus rhythm. This was a technically good study. The left ventricular size is normal. Left ventricular wall thickness is normal. Overall left vent ricular systolic function is normal with, an EF between 60 - 65 %. The right ventricle is normal in size. Normal LA size by volume 22+/-6 ml/m2. The right atrium is normal in size. Interatrial and interventricular septum intact. The aortic valve is trileaflet and appears structurally normal. The mitral valve is normal. The tricuspid valve appears structurally normal. There is no pulmonic regurgitation present. The aortic root size is normal. Normal inferior vena cava with normal inspiratory collapse consistent with estimated right atrial pre ssure of 5 mmHg. There is no pericardial effusion. CONCLUSIONS -------- 1. The left ventricular size is normal. 2. Left ventricular wall thickness is normal. 3. Overall left ventricular systolic function is normal with, an EF between 60 - 65 %. 4. There is no pericardial effusion. TEST ANALYST: Vinita Cruz, RUST
--- NOTE | 2020-10-20 16:15 | P.HPIM ---
History of Present Illness H&P Date: 10/20/20 40-year-old female presenting to the emergency Department with complaints of shortness of breath, coughing up blood has been worsening over the past few days. Patient was diagnosed with Covid on October 09, she was having the normal fever, bodyaches and chills along with her cough. Patient states over the last 2 days she feels like her shortness of breath is getting worse and she is having intermittent pains when she has coughing. She states today while she was coughing she noticed a little bit of blood in her sputum as well. She states she feels like it's hard to get in a deep breath. She does admit to some nausea, no vomiting, no more fevers. She denies history of asthma, she is a no nsmoker, no heart disease history. Upon arrival to the ER, she is afebrile, tachycardia at 114, 95% on room air. She was diagnosed on October 09. No more fevers however she is right tachycardia at 114. EKG shows sinus tach, no other acute process. Chest x-ray shows low lung volumes, patchy bibasilar infiltrates. Blood work revealed normal white count, CRP is elevated at 47, LDH is 651. Lactic acid is normal at 1.1. D-dimer did come back elevated at 1.21. CTA was ordered which revealed m ultifocal patchy groundglass infiltrates greatest in the lower lungs, positive for PE involving segmental and subsegmental branches of the right lower lobe. Patient vital signs remained stable, 95% on room air. She was started on high- dose heparin. Review of Systems REVIEW OF SYSTEMS: CONSTITUTIONAL: No fever, no malaise, no fatigue. HEENT: No recent visual problems or hearing problems. Denied any sore throat. CARDIOVASCULAR: No chest pain, orthopnea, PND, no palpitations, no syncope. PULMONARY: Positive for shortness of breath, no cough, no hemoptysis. GASTROINTESTINAL: No diarrhea, no nausea, no vomiting, no abdominal pain. NEUROLOGICAL: No headaches, no weakness, no numbness. HEMATOLOGICAL: Denies any bleeding or petechiae. GENITOURINARY: Denies any burning micturition, frequency, or urgency. MUSCULOSKELETAL/RHEUMATOLOGICAL: Denies any joint pain, swelling, or any muscle pain. ENDOCRINE: Denies any polyuria or polydipsia. The rest of the 14-point review of systems is negative. Past Medical History Past Medical History: GERD/Reflux Additional Past Medical History / Comment(s): Covid 19 infection on 10/09/2020 History of Any Multi-Drug Resistant Organisms: None Reported Past Surgical History: Cholecystectomy, Hysterectomy, Tubal Ligation, Uterine Ablation Past Anesthesia/Blood Transfusion Reactions: No Reported Reaction Additional Past Anesthesia/Blood Transfusion Reaction / Comment(s): no hx. blood transfusion Past Psychological History: No Psychological Hx Reported Smoking Status: Never smoker Past Alcohol Use History: Occasional Past Drug Use History: None Reported - Past Family History Mother Family Medical History: No Reported History Father Family Medical History: CVA/TIA, Hypertension Additional Family Medical History / Comment(s): "blood clots", mechanical valve Medications and Allergies Home Medications Medication Instructions Recorded Confirmed Type Apixaban [Eliquis Starter Pack 0 mg PO DIRECTED 30 Days #1 pack 10/20/20 Rx (for VTE)] Allergies Allergy/AdvReac Type Severity Reaction Status Date / Time No Known Allergies Allergy Verified 10/19/20 15:26 Physical Exam Vitals: Vital Signs Temp Pulse Pulse Resp BP BP Pulse Ox 10/20/20 08:00 97.8 F 94 22 110/75 94 L 10/20/20 04:00 98 F 92 19 108/67 95 10/20/20 02:00 107 H 10/19/20 22:46 98.4 F 107 H 20 122/82 95 10/19/20 20:14 99.1 F 128 H 18 135/83 94 L 10/19/20 17:00 97 20 127/69 97 10/19/20 13:06 98.2 F 114 H 22 127/83 95 Intake and Output 10/19/20 10/20/20 10/20/20 22:59 06:59 14:59 Intake Total 95.772 120 Balance 95.772 120 Intake: Intake, IV Titration 95.772 Amount Heparin Sod,Pork in 0.45% 95.772 NaCl 25,000 unit In 0.45 % NaCl 1 250ml.bag @ 18 UNITS/KG/HR 13.88 mls/hr IV .[id number] [facility] Rx#: [id number] Oral 120 Other: Voiding Method Toilet Toilet # Voids 2 1 Weight 77.111 kg 76.8 kg - Constitutional General appearance: Present: average body habitus, cooperative, no acute distress - EENT Eyes: Present: anicteric sclerae, EOMI, PERRLA, normal appearance ENT: Present: hearing grossly normal, normal oropharynx Ears: bilateral: normal - Neck Neck: Present: normal ROM. Absent: lymphadenopathy, rigidity, thyromegaly Carotids: negative: bruit present Thyroid: bilateral: normal size, negative: enlarged, nodule - Respiratory Respiratory: bilateral: CTA, negative: rales, rhonchi, wheezing - Cardiovascular Rhythm: regular Heart sounds: normal: S1, S2 Abnormal Heart Sounds: Absent: systolic murmur, diastolic murmur - Gastrointestinal General gastrointestinal: Present: normal bowel sounds, soft. Absent: distended, organomegaly, tenderness - Genitourinary Genitourinary Comment(s): deferred - Integumentary Integumentary: Present: normal turgor. Absent: jaundiced, rash, ulcer - Neurologic Neurologic: Present: CNII-XII intact. Absent: focal deficits - Musculoskeletal Musculoskeletal: Present: gait normal, strength equal bilaterally - Psychiatric Psychiatric: Present: A&O x's 3, appropriate affect, intact judgment & insight Results CBC & Chem 7: 10/20/20 09:09 10/19/20 14:09 Labs: Abnormal Lab Results - Last 24 Hours (Table) 10/19/20 10/19/20 10/19/20 Range/Units 14:09 14:09 14:09 RDW 15.8 H (11.5-15.5) % Lymphocytes # (1.0-4.8) k/uL APTT (22.0-30.0) sec D-Dimer 1.21 H (<0.60) mg/L FEU Glucose 103 H (74-99) mg/dL Alkaline Phosphatase 133 H (38-126) U/L Lactate Dehydrogenase 651 H (313-618) U/L C-Reactive Protein 47.8 H (<10.0) mg/L 10/20/20 10/20/20 10/20/20 Range/Units 00:28 09:09 09:09 RDW 15.9 H (11.5-15.5) % Lymphocytes # 0.8 L (1.0-4.8) k/uL APTT >200.0 H* 72.8 H (22.0-30.0) sec D-Dimer (<0.60) mg/L FEU Glucose (74-99) mg/dL Alkaline Phosphatase (38-126) U/L Lactate Dehydrogenase (313-618) U/L C-Reactive Protein (<10.0) mg/L Thrombosis Risk Factor Assmnt - Choose All That Apply Each Factor Represents 1 point: Obesity (BMI >25) Other Risk Factors: No Other congenital or acquired thrombophilia - If yes, enter type in comment: No Thrombosis Risk Factor Assessment Total Risk Factor Score: 1 Thrombosis Risk Factor Assessment Level: Low Risk Assessment and Plan Assessment: 1. Acute bilateral lower lobe pulmonary embolism with the potential of a pulmonary infarct involving the right lower lobe; - provoked event following Covid 19 infection; patient was infected on 10/09/2020 and subsequently she was a relatively inactive and sedentary. She does have a family history for pulmonary embolism in her father. There may be some underlying genetic predisposition also. For now, clearly the patient's presentation is consistent with a post COVID 19 pulmonary embolism. An ongoing Covid 19 related pneumonia is felt to be less likely. Rapid COVID testing negative - Patient remains on IV heparin; pulmonary service on board and planning to sandra sition to [facility] after obtaining insurance coverage; patient is recommended at least 3-6 months of anticoagulation therapy - Bilateral lower extremity Doppler is ordered - Echocardiogram is ordered to assess left ventricular function and right heart strain - Hematology consulted for further workup on hypercoagulable state 2. Covid 19 infection on 10/09/2020; rapid COVID testing negative 3. Hemoptysis; self-limited; secondary to 1; we will monitor CBC 4. GERD/gastritis; continue with home PPI therapy DVT prophylaxis; SCDs/systemic anticoagulation CODE STATUS; full code
[2020-10-21 00:50] LABS: Cardiolipin Ab IgG Interp NEGATIVE (NEGATIVE); Cardiolipin Ab IgM Interp NEGATIVE (NEGATIVE); Cardiolipin IgA Antibody 0.7 U/mL; Cardiolipin IgM Antibody 1.2 U/mL
[2020-10-21] MEDS: KETOROLAC 15 MG/ML 1 ML VIAL IVP PRN ×3 (03:54→19:56)
[2020-10-21 07:31] LABS: African American GFR (CKD) >90 (>60 ml/min/1.73 sqM); Anion Gap 4 mmol/L; Blood Urea Nitrogen 9 mg/dL (7-17); Calcium 9.5 mg/dL (8.4-10.2); Carbon Dioxide 26 mmol/L (22-30); Chloride 105 mmol/L (98-107); Glucose 104 mg/dL (74-99); Non-African American GFR(CKD) >90 (>60 ml/min/1.73 sqM); Potassium 3.5 mmol/L (3.5-5.1); Sodium 135 mmol/L (137-145)
[2020-10-21 07:41] LABS: Anisocytosis Slight; Basophils % (A) 0 %; Eosinophils # (A) 0.1 k/uL (0-0.7); Eosinophils % (A) 1 %; HCT 32.9 % (34.0-46.0); HGB 11.3 gm/dL (11.4-16.0); Lymphocytes # (A) 0.8 k/uL (1.0-4.8); Lymphocytes % (A) 11 %; MCH 28.4 pg (25.0-35.0); MCHC 34.3 g/dL (31.0-37.0); MCV 82.8 fL (80.0-100.0); Mean Platelet Volume 7.1; Monocytes # (A) 0.4 k/uL (0-1.0); Monocytes % (A) 5 %; Neutrophils # (A) 5.9 k/uL (1.3-7.7); Neutrophils % (A) 81 %; Platelet Count 277 k/uL (150-450); RBC 3.97 m/uL (3.80-5.40); WBC 7.3 k/uL (3.8-10.6)
[2020-10-21] MEDS: APIXABAN 5 MG TAB PO SCH ×2 (10:15→19:53)
[2020-10-21] MEDS: HYDROcodone/APAP 5-325MG 1 EACH TAB PO PRN ×2 (10:15→17:35)
--- NOTE | 2020-10-21 11:56 | P.PN ---
Subjective Progress Note Date: 10/21/20 40-year-old female patient who came into the ED with symptoms of shortness of breath, cough. She was diagnosed having COVID 19 back in 10/09/2019. Over the past 2 days, the patient felt like she was getting more short of breath and she was having intermittent cough and chest aching limited hemoptysis. She is a nonsmoker.. The patient came into the emergency and the patient was afebrile. She was slightly tachycardic with a heart rate of 114, pulse ox was 95% on room air oxygen. The patient had a white cell count of 6 with a hemoglobin of 12 and a platelet count of 252. D-dimer was 1.21. Rest of the coagulation profile was within normal. BUN was 15 with a creatinine of 0.6 and sodium was 138. Rest of the blood work showed a AST of 31, ALT of 27, LDH was 651, C-reactive protein was 47.8. A repeat COVID 19 testing came back negative and the patient had a procalcitonin level of 0.04. For that reason she came into the hospital. Chest x-ray was within normal limits. The patient had a CT angiogram of the burst department that showed multifocal patchy groundglass pulmonary infiltrates more so in the lower lungs and the patient had also positive pulmonary embolism involving the segmental and subsegmental branches of the basilar right lower lobe. For that reason, the patient was started on IV heparin was hospitalized. This morning, she is on room air oxygen with a pulse ox of 95%. No leg swelling. No calf pain or tenderness. No previous history of DVT or pulmonary embolism. on 10/21/2020 I'm seeing this patient in follow-up. The patient is on oral anticoagulants. She is feeling less short of breath. Her oxygenation is adequate and the patient's pulse ox is 91% on room air oxygen. She is taking anticoagulants without any side effects or complications. No bleeding complication for now. The patient is taking Eliquis 10 mg by mouth twice a day and she will continue the anticoagulation for now. No other issues. No leg swelling. She does have a popliteal DVT. Echocardiogram showed a preserved LV function with an ejection fraction of 60-65%. hematology and oncology have evaluated the patient. she is still having pain across her right chest and side of the pulmonary infarction the patient is taking a combination of [place] 5 and Toradol 15 mg IV push every 6 hours. no hemoptysis. Objective - Vital Signs Vital signs: Vital Signs Temp 98.3 F 10/21/20 08:00 Pulse 101 H 10/21/20 08:00 Resp 18 10/21/20 08:00 BP 108/73 10/21/20 08:00 Pulse Ox 91 L 10/21/20 08:00 Intake & Output 10/20/20 10/21/20 10/21/20 18:59 06:59 18:59 Intake Total 900 420 Output Total 400 Balance 900 20 Weight 75.5 kg Intake: Oral 900 420 Output: Urine 400 Other: Voiding Method Toilet # Voids 2 2 - Exam The patient appeared well nourished and normally developed. Vital signs as documented. Head exam is unremarkable. No scleral icterus or corneal arcus noted. Neck is without jugular venous distension, thyromegaly, or carotid bruits. Carotid upstrokes are brisk bilaterally. Lungs as are diminished in the right lung base compared to left. The patient is unable to take deep breaths because of pain. Cardiac exam reveals the PMI to be normally sized and situated. Rhythm is regular. First and second heart sounds normal. No murmurs, rubs or gallops. Abdominal exam reveals normal bowel sounds, no masses, no organomegaly and no aortic enlargement. Extremities are nonedematous and both femoral and pedal pulses are normal.Examination of the skin revealed no evidence of significant rashes, suspicious appearing nevi or other concerning lesions.Neurologically, the patient is awake and alert and the patient does not have any focal neurological deficit. Cranial nerves are essentially intact. - Labs CBC & Chem 7: 10/21/20 06:51 10/21/20 06:51 Labs: Abnormal Lab Results - Last 24 Hours (Table) 10/21/20 10/21/20 Range/Units 06:51 06:51 Hgb 11.3 L (11.4-16.0) gm/dL Hct 32.9 L (34.0-46.0) % RDW 16.0 H (11.5-15.5) % Lymphocytes # 0.8 L (1.0-4.8) k/uL Sodium 135 L (137-145) mmol/L Glucose 104 H (74-99) mg/dL Assessment and Plan Plan: 1 Acute bilateral lower lobe pulmonary embolism with the potential of a pulmonary infarct involving the right lower lobe. This was a provoked event following Covid 19 infection as the patient was infected with Covid 19 on 10/09/2020 and subsequently she was a relatively inactive and sedentary. She does have a family history for pulmonary embolism in her father. There may be some underlying genetic predisposition also. For now, clearly the patient's presentation is consistent with a post COVID 19 pulmonary embolism. An ongoing Covid 19 related pneumonia is felt to be less likely.meanwhile, the patient is still having pleuritic chest pain on the right side. Examination of the breath sounds are quite diminished in the right lung base patient is still requiring pain control with a combination of Toradol and [place]. Hemoptysis has subsided. 2 Covid 19 infection on 10/09/2020 3 mild elevation of the inflammatory markers including LDH and CRP and the d- dimer was at 1.2 4 hemoptysis secondary to above 5 shortness of breath secondary to above Plan continue anticoagulation with Eliquis for this provoked pulmonary embolism Doppler of the lower extremities was negative for DVT Echocardiogram showed no evidence of any pulmonary hypertension Hypercoagulable workup on outpatient basis Early mobility repeat chest x-ray Provide the patient incentive spirometer Anticipate some pain related to pulmonary embolism/infarct in the right lower chest area. Patient is on Toradol for pain. Provide the patient incentive spirometer. we'll continue to follow. Home once the pain is under better control.
--- NOTE | 2020-10-21 12:15 | XR ---
EXAMINATION TYPE: XR chest 1V portable DATE OF EXAM: 10/21/2020 COMPARISON: Chest x-ray and chest CT 10/19/2020 HISTORY: Right-sided chest pain, pulmonary emboli TECHNIQUE: Single frontal view of the chest is obtained. FINDINGS: Lung volumes are low. No evident pneumothorax or pleural effusion. Patchy bibasilar densit y persists. Upper lobe groundglass opacity not as well seen on plain film. Heart size is stable. IMPRESSION: Findings similar to prior exam, correlate for pneumonia, there is basilar atelectasis.
--- NOTE | 2020-10-21 16:33 | P.PN ---
Subjective Progress Note Date: 10/21/20 Principal diagnosis: Pulmonary embolism/infarction 40-year-old female presenting to the emergency Department with complaints of shortness of breath, coughing up blood has been worsening over the past few days. Patient was diagnosed with Covid on October 09, she was having the n ormal fever, bodyaches and chills along with her cough. Patient states over the last 2 days she feels like her shortness of breath is getting worse and she is having intermittent pains when she has coughing. She states today while she was coughing she noticed a little bit of blood in her sputum as well. She states she feels like it's hard to get in a deep breath. She does admit to some nausea, no vomiting, no more fevers. She denies history of asthma, she is a nonsmoker, no heart disease history. Upon arrival to the ER, she is afebrile, tachycardia at 114, 95% on room air. She was diagnosed on October 09. No more fevers however she is right tachycardia at 114. EKG shows sinus tach, no other acute process. Chest x-ray shows low lung volumes, patchy bibasilar infiltrates. Blood work revealed normal white count, CRP is elevated at 47, LDH is 651. Lactic acid is normal at 1.1. D-dimer did come back elevated at 1.21. CTA was ordered which revealed multifocal patchy groundglass infiltrates greatest in the lower lungs, positive for PE involving segmental and subsegmental branches of the right lower lobe. Patient vital signs remained stable, 95% on room air. She was started on high- dose heparin. 10/21/2020 Patient is seen and evaluated in room at bedside; continues to complain of severe chest pain which is relieved by IV narcotics; remains on oral anticoagulants. She is feeling less short of breath. Her oxygenation is adequate and the patient's pulse ox is 91% on room air oxygen. She is taking anticoagulants without any side effects or complications. No bleeding complication for now. The patient is taking Eliquis 10 mg by mouth twice a day and she will continue the anticoagulation for now. No other issues. No leg swelling. She does have a popliteal DVT. Echocardiogram showed a preserved LV function with an ejection fraction of 60- 65%. hematology and oncology have evaluated the patient and recommending oral anticoagulation with further hypercoagulable workup as an outpatient. Patient is still having pain across her right chest and side of the pulmonary infarction the patient is taking a combination of [place] 5 and Toradol 15 mg IV push every 6 hours. no hemoptysis. Pulmonary service recommending to continue current pain management and continued monitoring till chest pain is controlled Objective - Vital Signs Vital signs: Vital Signs Temp 98.3 F 10/21/20 08:00 Pulse 101 H 10/21/20 08:00 Resp 18 10/21/20 08:00 BP 108/73 10/21/20 08:00 Pulse Ox 91 L 10/21/20 08:00 Intake & Output 10/20/20 10/21/20 10/21/20 18:59 06:59 18:59 Intake Total 900 420 Output Total 400 Balance 900 20 Weight 75.5 kg Intake: Oral 900 420 Output: Urine 400 Other: Voiding Method Toilet # Voids 2 2 - Exam - Constitutional General appearance: Present: average body habitus, cooperative, no acute distress - EENT Eyes: Present: anicteric sclerae, EOMI, PERRLA, normal appearance ENT: Present: hearing grossly normal, normal oropharynx Ears: bilateral: normal - Neck Neck: Present: normal ROM. Absent: lymphadenopathy, rigidity, thyromegaly Carotids: negative: bruit present Thyroid: bilateral: normal size, negative: enlarged, nodule - Respiratory Respiratory: bilateral: CTA, negative: rales, rhonchi, wheezing - Cardiovascular Rhythm: regular Heart sounds: normal: S1, S2 Abnormal Heart Sounds: Absent: systolic murmur, diastolic murmur - Gastrointestinal General gastrointestinal: Present: normal bowel sounds, soft. Absent: distended, organomegaly, tenderness - Genitourinary Genitourinary Comment(s): deferred - Integumentary Integumentary: Present: normal turgor. Absent: jaundiced, rash, ulcer - Neurologic Neurologic: Present: CNII-XII intact. Absent: focal deficits - Musculoskeletal Musculoskeletal: Present: gait normal, strength equal bilaterally - Psychiatric Psychiatric: Present: A&O x's 3, appropriate affect, intact judgment & insight - Labs CBC & Chem 7: 10/21/20 06:51 10/21/20 06:51 Labs: Abnormal Lab Results - Last 24 Hours (Table) 10/21/20 10/21/20 Range/Units 06:51 06:51 Hgb 11.3 L (11.4-16.0) gm/dL Hct 32.9 L (34.0-46.0) % RDW 16.0 H (11.5-15.5) % Lymphocytes # 0.8 L (1.0-4.8) k/uL Sodium 135 L (137-145) mmol/L Glucose 104 H (74-99) mg/dL Assessment and Plan Assessment: 1. Acute bilateral lower lobe pulmonary embolism with the potential of a pulmonary infarct involving the right lower lobe; - provoked event following Covid 19 infection; patient was infected on 10/09/2020 and subsequently she was a relatively inactive and sedentary. She does have a family history for pulmonary embolism in her father. There may be some underlying genetic predisposition also. For now, clearly the patient's presentation is consistent with a post COVID 19 pulmonary embolism. An ongoing Covid 19 related pneumonia is felt to be less likely. Rapid COVID testing negative - Patient remains on IV heparin; pulmonary service on board and planning to transition to [facility] after obtaining insurance coverage; patient is recommended at least 3-6 months of anticoagulation therapy - Bilateral lower extremity Doppler is ordered - Echocardiogram is ordered to assess left ventricular function and right heart strain - Hematology consulted for further workup on hypercoagulable state 2. Covid 19 infection on 10/09/2020; rapid COVID testing negative 3. Hemoptysis; self-limited; secondary to 1; we will monitor CBC 4. GERD/gastritis; continue with home PPI therapy DVT prophylaxis; SCDs/systemic anticoagulation CODE STATUS; full code
[2020-10-22] MEDS: KETOROLAC 15 MG/ML 1 ML VIAL IVP PRN (04:32)
[2020-10-22 09:14] LABS: African American GFR (CKD) >90 (>60 ml/min/1.73 sqM); Anion Gap 6 mmol/L; Blood Urea Nitrogen 11 mg/dL (7-17); Calcium 9.4 mg/dL (8.4-10.2); Carbon Dioxide 27 mmol/L (22-30); Chloride 104 mmol/L (98-107); Glucose 153 mg/dL (74-99); Non-African American GFR(CKD) >90 (>60 ml/min/1.73 sqM); Potassium 3.6 mmol/L (3.5-5.1); Sodium 137 mmol/L (137-145)
[2020-10-22 09:36] LABS: Anisocytosis Slight; Basophils % (A) 0 %; Eosinophils # (A) 0.1 k/uL (0-0.7); Eosinophils % (A) 1 %; HCT 35.1 % (34.0-46.0); HGB 11.7 gm/dL (11.4-16.0); Lymphocytes # (A) 0.8 k/uL (1.0-4.8); Lymphocytes % (A) 16 %; MCH 27.6 pg (25.0-35.0); MCHC 33.3 g/dL (31.0-37.0); MCV 82.9 fL (80.0-100.0); Monocytes # (A) 0.2 k/uL (0-1.0); Monocytes % (A) 4 %; Neutrophils # (A) 4.1 k/uL (1.3-7.7); Neutrophils % (A) 78 %; Platelet Count 365 k/uL (150-450); RBC 4.23 m/uL (3.80-5.40); WBC 5.3 k/uL (3.8-10.6)
[2020-10-22] MEDS: APIXABAN 5 MG TAB PO SCH ×2 (09:38→20:22)
--- NOTE | 2020-10-22 09:50 | P.PN ---
Subjective Progress Note Date: 10/22/20 40-year-old female patient who came into the ED with symptoms of shortness of breath, cough. She was diagnosed having COVID 19 back in 10/09/2019. Over the past 2 days, the patient felt like she was getting more short of breath and she was having intermittent cough and chest aching limited hemoptysis. She is a nonsmoker.. The patient came into the emergency and the patient was afebrile. She was slightly tachycardic with a heart rate of 114, pulse ox was 95% on room air oxygen. The patient had a white cell count of 6 with a hemoglobin of 12 and a platelet count of 252. D-dimer was 1.21. Rest of the coagulation profile was within normal. BUN was 15 with a creatinine of 0.6 and sodium was 138. Rest of the blood work showed a AST of 31, ALT of 27, LDH was 651, C-reactive protein was 47.8. A repeat COVID 19 testing came back negative and the patient had a procalcitonin level of 0.04. For that reason she came into the hospital. Chest x-ray was within normal limits. The patient had a CT angiogram of the burst department that showed multifocal patchy groundglass pulmonary infiltrates more so in the lower lungs and the patient had also positive pulmonary embolism involving the segmental and subsegmental branches of the basilar right lower lobe. For that reason, the patient was started on IV heparin was hospitalized. This morning, she is on room air oxygen with a pulse ox of 95%. No leg swelling. No calf pain or tenderness. No previous history of DVT or pulmonary embolism. on 10/21/2020 I'm seeing this patient in follow-up. The patient is on oral anticoagulants. She is feeling less short of breath. Her oxygenation is adequate and the patient's pulse ox is 91% on room air oxygen. She is taking anticoagulants without any side effects or complications. No bleeding complication for now. The patient is taking Eliquis 10 mg by mouth twice a day and she will continue the anticoagulation for now. No other issues. No leg swelling. She does have a popliteal DVT. Echocardiogram showed a preserved LV function with an ejection fraction of 60-65%. hematology and oncology have evaluated the patient. she is still having pain across her right chest and side of the pulmonary infarction the patient is taking a combination of [place] 5 and Toradol 15 mg IV push every 6 hours. no hemoptysis. 10/22/2020 I'm seeing the patient for a follow-up post her pulmonary embolism. The patient's is currently using incentive spirometer. The patient is on Eliquis for long-term anticoagulation. She was started on 10 mg by mouth twice a day. She was having poor respiratory efforts because of pleuritic pain on the right and the patient was given Toradol. A repeat chest x-ray was also done that showed some atelectatic changes in lung bases. Lung volumes were small. No evidence of any pleural effusion. No evidence of any consolidation in the right lung base. This morning, the patient is on room air oxygen and her pulse ox is around 94%. No tachycardia. No fever. Objective - Vital Signs Vital signs: Vital Signs Temp 98.4 F 10/22/20 00:00 Pulse 91 10/22/20 04:00 Resp 18 10/22/20 04:00 BP 108/71 10/22/20 04:00 Pulse Ox 94 L 10/22/20 04:00 Intake & Output 10/21/20 10/22/20 10/22/20 18:59 06:59 18:59 Intake Total 1020 Output Total 900 Balance 120 Weight 75.5 kg Intake: Oral 1020 Output: Urine 900 Other: # Voids 2 - Exam The patient appeared well nourished and normally developed. Vital signs as documented. Head exam is unremarkable. No scleral icterus or corneal arcus noted. Neck is without jugular venous distension, thyromegaly, or carotid bruits. Carotid upstrokes are brisk bilaterally. Lungs as are diminished in the right lung base compared to left. The patient is unable to take deep breaths because of pain. Cardiac exam reveals the PMI to be normally sized and situated. Rhythm is regular. First and second heart sounds normal. No murmurs, rubs or gallops. Abdominal exam reveals normal bowel sounds, no masses, no organomegaly and no aortic enlargement. Extremities are nonedematous and both femoral and pedal pulses are normal.Examination of the skin revealed no evidence of significant rashes, suspicious appearing nevi or other concerning lesions.Neurologically, the patient is awake and alert and the patient does not have any focal neurological deficit. Cranial nerves are essentially intact. - Labs CBC & Chem 7: 10/22/20 08:32 10/22/20 08:52 Labs: Abnormal Lab Results - Last 24 Hours (Table) 10/22/20 10/22/20 Range/Units 08:32 08:52 RDW 16.0 H (11.5-15.5) % Lymphocytes # 0.8 L (1.0-4.8) k/uL Glucose 153 H (74-99) mg/dL Assessment and Plan Plan: 1 Acute bilateral lower lobe pulmonary embolism with the potential of a pulmonary infarct involving the right lower lobe. This was a provoked event following Covid 19 infection as the patient was infected with Covid 19 on 10/09/2020 and subsequently she was a relatively inactive and sedentary. She does have a family history for pulmonary embolism in her father. There may be some underlying genetic predisposition also. For now, clearly the patient's presentation is consistent with a post COVID 19 pulmonary embolism. An ongoing Covid 19 related pneumonia is felt to be less likely.meanwhile, the patient is still having pleuritic chest pain on the right side. Examination of the breath sounds are quite diminished in the right lung base patient is still requiring pain control with a combination of Toradol and M[place]enzie. Hemoptysis has subsided. The patient clinically is improving on today's evaluation. We have effective pain control over the past 24 hours. Chest x-ray that was done yesterday showed adequate expansion of both lungs and there was some atelectatic changes in lung bases. No other acute abnormalities were noted. 2 Covid 19 infection on 10/09/2020 3 mild elevation of the inflammatory markers including LDH and CRP and the d-dimer was at 1.2 4 hemoptysis secondary to above 5 shortness of breath secondary to above Plan continue anticoagulation with Eliquis for this provoked pulmonary embolism Doppler of the lower extremities was negative for DVT Echocardiogram showed no evidence of any pulmonary hypertension Hypercoagulable workup on outpatient basis Continue mobility and increase the level of activity as tolerated repeat chest x-ray from yesterday showed some atelectatic changes in lung bases bilaterally Provide the patient incentive spirometerAnd the patient is using incentive spirometer and the patient is effective pain control Anticipate some pain related to pulmonary embolism/infarct in the right lower chest area. Patient is on Toradol for pain. we'll continue to follow. Home today or within the next 24 hours.
--- NOTE | 2020-10-22 12:27 | P.PN ---
Subjective Progress Note Date: 10/22/20 patient was having some increased chest pain yesterday, due to which discharge was held. she overall feels much better today, and has not required any pain medications for 8 hours. Respiratory status is stable. No unusual bleeding or bruising. Objective - Vital Signs Vital signs: Vital Signs Temp 97.8 F 10/22/20 08:00 Pulse 92 10/22/20 08:00 Resp 18 10/22/20 08:00 BP 102/62 10/22/20 08:00 Pulse Ox 93 L 10/22/20 08:00 Intake & Output 10/21/20 10/22/20 10/22/20 18:59 06:59 18:59 Intake Total 1020 240 Output Total 900 400 Balance 120 -160 Weight 75.5 kg Intake: Oral 1020 240 Output: Urine 900 400 Other: # Voids 2 - Constitutional General appearance: Present: no acute distress - EENT Eyes: Present: EOMI ENT: Present: hearing grossly normal, normal oropharynx - Respiratory Respiratory: bilateral: CTA - Cardiovascular Rhythm: regular Heart sounds: normal: S1, S2 - Gastrointestinal General gastrointestinal: Present: normal bowel sounds, soft - Integumentary Integumentary: Present: normal - Neurologic Neurologic: Present: CNII-XII intact - Musculoskeletal Musculoskeletal: Present: strength equal bilaterally - Psychiatric Psychiatric: Present: A&O x's 3, appropriate affect - Labs CBC & Chem 7: 10/22/20 08:32 10/22/20 08:52 Labs: Abnormal Lab Results - Last 24 Hours (Table) 10/22/20 10/22/20 Range/Units 08:32 08:52 RDW 16.0 H (11.5-15.5) % Lymphocytes # 0.8 L (1.0-4.8) k/uL Glucose 153 H (74-99) mg/dL Assessment and Plan (1) Pulmonary embolism Narrative/Plan: patient had some increased chest pain yesterday, but is improved today. respiratory status is stable. her symptoms may have been due to clot breakdown and distal migration causing peripheral micro-infarctions. She was advised that this is actually an indication of effectiveness of therapy, and not failure of the same. - Continue anticoagulation with Eliquis - Antiphospholipid antibody testing reveals anticardiolipin Antibodies to be negative. Lupus anticoagulant testing is pending, but is likely to be positive in a patient on anticoagulation. Therefore the results would not be helpful, unless it is negative. If beta-2 glycoprotein antibody testing comes back positive, we will need to consider changing the patient to Lovenox or warfarin. If negative, recommend continuation of Eliquis - Recommend total of 6 months of treatment. - okay to discharge from our standpoint, if okay with the admitting service and pulmonary medicine. If beta-2 glycoprotein antibody testing still pending at the time of discharge and does come back significantly positive, we can contact the patient as an outpatient to discuss changing her regimen. - contraception is not a concern on her current regimen, as the patient has had a hysterectomy Current Visit: Yes Status: Acute Code(s): I26.99 - OTHER PULMONARY EMBOLISM WITHOUT ACUTE COR PULMONALE SNOMED Code(s): 66794206
[2020-10-22] MEDS: HYDROcodone/APAP 5-325MG 1 EACH TAB PO PRN (17:05)
--- NOTE | 2020-10-22 17:56 | P.PN ---
Subjective Progress Note Date: 10/22/20 Principal diagnosis: Pulmonary embolism/infarction 40-year-old female presenting to the emergency Department with complaints of shortness of breath, coughing up blood has been worsening over the past few days. Patient was diagnosed with Covid on October 09, she was having the n ormal fever, bodyaches and chills along with her cough. Patient states over the last 2 days she feels like her shortness of breath is getting worse and she is having intermittent pains when she has coughing. She states today while she was coughing she noticed a little bit of blood in her sputum as well. She states she feels like it's hard to get in a deep breath. She does admit to some nausea, no vomiting, no more fevers. She denies history of asthma, she is a nonsmoker, no heart disease history. Upon arrival to the ER, she is afebrile, tachycardia at 114, 95% on room air. She was diagnosed on October 09. No more fevers however she is right tachycardia at 114. EKG shows sinus tach, no other acute process. Chest x-ray shows low lung volumes, patchy bibasilar infiltrates. Blood work revealed normal white count, CRP is elevated at 47, LDH is 651. Lactic acid is normal at 1.1. D-dimer did come back elevated at 1.21. CTA was ordered which revealed multifocal patchy groundglass infiltrates greatest in the lower lungs, positive for PE involving segmental and subsegmental branches of the right lower lobe. Patient vital signs remained stable, 95% on room air. She was started on high- dose heparin. 10/21/2020 Patient is seen and evaluated in room at bedside; continues to complain of severe chest pain which is relieved by IV narcotics; remains on oral anticoagulants. She is feeling less short of breath. Her oxygenation is adequate and the patient's pulse ox is 91% on room air oxygen. She is taking anticoagulants without any side effects or complications. No bleeding complication for now. The patient is taking Eliquis 10 mg by mouth twice a day and she will continue the anticoagulation for now. No other issues. No leg swelling. She does have a popliteal DVT. Echocardiogram showed a preserved LV function with an ejection fraction of 60- 65%. hematology and oncology have evaluated the patient and recommending oral anticoagulation with further hypercoagulable workup as an outpatient. Patient is still having pain across her right chest and side of the pulmonary infarction the patient is taking a combination of [place] 5 and Toradol 15 mg IV push every 6 hours. no hemoptysis. Pulmonary service recommending to continue current pain management and continued monitoring till chest pain is controlled 10/22/2020 Patient is seen and evaluated in room at bedside; admitted for pulmonary embolism/pulmonary infarction. The patient's is currently using incentive spirometer. The patient is on Eliquis for long-term anticoagulation. She was started on 10 mg by mouth twice a day. She was having poor respiratory efforts because of pleuritic pain on the right and the patient was given Toradol. A repeat chest x-ray was also done that showed some atelectatic changes in lung bases. Lung volumes were small. No evidence of any pleural effusion. No evidence of any consolidation in the right lung base. This morning, the patient is on room air oxygen and her pulse ox is around 94%. No tachycardia. No fever. Patient has been adequately anticoagulated but remains in severe pain requiring IV pain medication possibly secondary to extensive PE/pulmonary infarction; patient's discharge is held by pulmonary service to continue with IV pain medication for another 24 hours Objective - Vital Signs Vital signs: Vital Signs Temp 97.8 F 10/22/20 08:00 Pulse 92 10/22/20 08:00 Resp 18 10/22/20 08:00 BP 102/62 10/22/20 08:00 Pulse Ox 93 L 10/22/20 08:00 Intake & Output 10/21/20 10/22/20 10/22/20 18:59 06:59 18:59 Intake Total 1020 Output Total 900 Balance 120 Weight 75.5 kg Intake: Oral 1020 Output: Urine 900 Other: # Voids 2 - Exam - Constitutional General appearance: Present: average body habitus, cooperative, no acute d istress - EENT Eyes: Present: anicteric sclerae, EOMI, PERRLA, normal appearance ENT: Present: hearing grossly normal, normal oropharynx Ears: bilateral: normal - Neck Neck: Present: normal ROM. Absent: lymphadenopathy, rigidity, thyromegaly Carotids: negative: bruit present Thyroid: bilateral: normal size, negative: enlarged, nodule - Respiratory Respiratory: bilateral: CTA, negative: rales, rhonchi, wheezing - Cardiovascular Rhythm: regular Heart sounds: normal: S1, S2 Abnormal Heart Sounds: Absent: systolic murmur, diastolic murmur - Gastrointestinal General gastrointestinal: Present: normal bowel sounds, soft. Absent: distended, organomegaly, tenderness - Genitourinary Genitourinary Comment(s): deferred - Integumentary Integumentary: Present: normal turgor. Absent: jaundiced, rash, ulcer - Neurologic Neurologic: Present: CNII-XII intact. Absent: focal deficits - Musculoskeletal Musculoskeletal: Present: gait normal, strength equal bilaterally - Psychiatric Psychiatric: Present: A&O x's 3, appropriate affect, intact judgment & insight - Labs CBC & Chem 7: 10/22/20 08:32 10/22/20 08:52 Labs: Abnormal Lab Results - Last 24 Hours (Table) 10/22/20 10/22/20 Range/Units 08:32 08:52 RDW 16.0 H (11.5-15.5) % Lymphocytes # 0.8 L (1.0-4.8) k/uL Glucose 153 H (74-99) mg/dL Assessment and Plan Assessment: 1. Acute bilateral lower lobe pulmonary embolism with the potential of a pulmonary infarct involving the right lower lobe; - provoked event following Covid 19 infection; patient was infected on 10/09/2020 and subsequently she was a relatively inactive and sedentary. She does have a family history for pulmonary embolism in her father. There may be some underlying genetic predisposition also. For now, clearly the patient's presentation is consistent with a post COVID 19 pulmonary embolism. An ongoing Covid 19 related pneumonia is felt to be less likely. Rapid COVID testing negative - Patient remains on IV heparin; pulmonary service on board and planning to transition to [facility] [place] after obtaining insurance coverage; patient is recommended at least 3-6 months of anticoagulation therapy - Bilateral lower extremity Doppler is ordered - Echocardiogram is ordered to assess left ventricular function and right heart strain - Hematology consulted for further workup on hypercoagulable state 2. Covid 19 infection on 10/09/2020; rapid COVID testing negative 3. Hemoptysis; self-limited; secondary to 1; we will monitor CBC 4. GERD/gastritis; continue with home PPI therapy DVT prophylaxis; SCDs/systemic anticoagulation CODE STATUS; full code
[2020-10-23] MEDS: HYDROcodone/APAP 5-325MG 1 EACH TAB PO PRN (01:46)
[2020-10-23 04:08] VITALS: RESP 17
[2020-10-23] MEDS: APIXABAN 5 MG TAB PO SCH (08:37)
[2020-10-23 08:44] VITALS: BP 119/76; PULSE 88; TEMP 98.3
[2020-10-23 14:32] LABS: APTT 64 Sec(s) (<43); APTT 1:1 Mix 51 Sec(s) (<43); DRVVT 1:1 Mix 64 Sec(s) (<44); DRVVT Confirmation Positive (Negative); Dilute Russell Viper Venom 106 Sec(s) (<44); Hexagonal Phase Neutralization Positive (Negative)
--- NOTE | 2020-10-23 15:48 | P.PN ---
Subjective Progress Note Date: 10/23/20 Principal diagnosis: Shortness of breath, acute pulmonary emboli 40-year-old female patient who came into the ED with symptoms of shortness of breath, cough. She was diagnosed having COVID 19 back in 10/09/2019. Over the past 2 days, the patient felt like she was getting more short of breath and she was having intermittent cough and chest aching limited hemoptysis. She is a nonsmoker.. The patient came into the emergency and the patient was afebrile. She was slightly tachycardic with a heart rate of 114, pulse ox was 95% on room air oxygen. The patient had a white cell count of 6 with a hemoglobin of 12 and a platelet count of 252. D-dimer was 1.21. Rest of the coagulation profile was within normal. BUN was 15 with a creatinine of 0.6 and sodium was 138. Rest of the blood work showed a AST of 31, ALT of 27, LDH was 651, C-reactive protein was 47.8. A repeat COVID 19 testing came back negative and the patient had a procalcitonin level of 0.04. For that reason she came into the hospital. Chest x-ray was within normal limits. The patient had a CT angiogram of the burst department that showed multifocal patchy groundglass pulmonary infiltrates more so in the lower lungs and the patient had also positive pulmonary embolism involving the segmental and subsegmental branches of the basilar right lower lobe. For that reason, the patient was started on IV heparin was hospitalized. This morning, she is on room air oxygen with a pulse ox of 95%. No leg swelling. No calf pain or tenderness. No previous history of DVT or pulmonary embolism. on 10/21/2020 I'm seeing this patient in follow-up. The patient is on oral anticoagulants. She is feeling less short of breath. Her oxygenation is adequate and the patient's pulse ox is 91% on room air oxygen. She is taking anticoagulants without any side effects or complications. No bleeding complic ation for now. The patient is taking Eliquis 10 mg by mouth twice a day and she will continue the anticoagulation for now. No other issues. No leg swelling. She does have a popliteal DVT. Echocardiogram showed a preserved LV function with an ejection fraction of 60-65%. hematology and oncology have evaluated the patient. she is still having pain across her right chest and side of the pulmonary infarction the patient is taking a combination of [place] 5 and Toradol 15 mg IV push every 6 hours. no hemoptysis. 10/22/2020 I'm seeing the patient for a follow-up post her pulmonary embolism. The patient's is currently using incentive spirometer. The patient is on Eliquis for long-term anticoagulation. She was started on 10 mg by mouth twice a day. She was having poor respiratory efforts because of pleuritic pain on the right and the patient was given Toradol. A repeat chest x-ray was also done that showed some atelectatic changes in lung bases. Lung volumes were small. No evidence of any pleural effusion. No evidence of any consolidation in the right lung base. This morning, the patient is on room air oxygen and her pulse ox is around 94%. No tachycardia. No fever. On 10/23/2020 patient seen in follow-up on selective care unit. She is awake and alert, in no acute distress, room air pulse ox is 95%, vital signs have been stable, no complaint of chest pain, no hemoptysis, no fever or chills, lung sounds are clear, no rhonchi or wheezes, patient has been transitioned to oral Eliquis, echocardiogram has shown no evidence of heart strain, EF of 60-65%, oxygenation has been stable. Today's labs have been reviewed, glucose was 153, renal profile and electrolytes were within normal limits. Last chest x-ray was done on 10/21/2020 showing low lung volumes, and patchy bibasilar density. Clinically has remained stable. Objective - Vital Signs Vital signs: Vital Signs Temp 98.3 F 10/23/20 08:40 Pulse 88 10/23/20 08:40 Resp 17 10/23/20 08:40 BP 119/76 10/23/20 08:40 Pulse Ox 95 10/23/20 08:40 Intake & Output 10/22/20 10/23/20 10/23/20 18:59 06:59 18:59 Intake Total 720 600 240 Output Total 400 350 Balance 320 600 -110 Weight 78.5 kg Intake: Oral 720 600 240 Output: Urine 400 350 Other: Voiding Method Toilet Toilet # Voids 1 - Exam GENERAL EXAM: Alert, very pleasant, 40-year-old white female on room air with pulse ox of 95% comfortable in no apparent distress. HEAD: Normocephalic/atraumatic. EYES: Normal reaction of pupils, equal size. Conjunctiva pink, sclera white. NOSE: Clear with pink turbinates. THROAT: No erythema or exudates. NECK: No masses, no JVD, no thyroid enlargement, no adenopathy. CHEST: No chest wall deformity. Symmetrical expansion. LUNGS: Equal air entry with no crackles, wheeze, rhonchi or dullness. CVS: Regular rate and rhythm, normal S1 and S2, no gallops, no murmurs, no rubs ABDOMEN: Soft, nontender. No hepatosplenomegaly, normal bowel sounds, no guarding or rigidity. EXTREMITIES: No clubbing, no edema, no cyanosis, 2+ pulses and upper and lower extremities. MUSCULOSKELETAL: Muscle strength and tone normal. SPINE: No scoliosis or deformity SKIN: No rashes CENTRAL NERVOUS SYSTEM: Alert and oriented -3. No focal deficits, tone is normal in all 4 extremities. PSYCHIATRIC: Alert and oriented -3. Appropriate affect. Intact judgment and insight. - Labs CBC & Chem 7: 10/22/20 08:32 10/22/20 08:52 Labs: Abnormal Lab Results - Last 24 Hours (Table) 10/20/20 Range/Units 17:53 Lupus Anticoag aPTT 64 H (<43) Sec(s) Lupus Anticoag PTT Mix 51 H (<43) Sec(s) Dil Jose E Viper Venom 106 H (<44) Sec(s) LA dRVVT Confirm Positive A (Negative) dRVVT 50:50 64 H (<44) Sec(s) Lupus Hexagonal Phase Positive A (Negative) Assessment and Plan Plan: Assessment: 1 Acute bilateral lower lobe pulmonary embolism with the potential of a pulmonary infarct involving the right lower lobe. This was a provoked event following Covid 19 infection as the patient was infected with Covid 19 on 09/19 and subsequently she was a relatively inactive and sedentary. She does have a family history for pulmonary embolism in her father. There may be some underlying genetic predisposition also. For now, clearly the patient's presentation is consistent with a post COVID 19 pulmonary embolism. An ongoing Covid 19 related pneumonia is felt to be less likely.meanwhile, the patient is still having pleuritic chest pain on the right side. Examination of the breath sounds are quite diminished in the right lung base patient is still requiring pain control with a combination of Toradol and Nunica. Hemoptysis has subsided. The patient clinically is improving on today's evaluation. We have effective pain control over the past 24 hours. Chest x-ray that was done yesterday showed adequate expansion of both lungs and there was some atelectatic changes in lung bases. No other acute abnormalities were noted. 2 Covid 19 infection on 10/09/2020 3 mild elevation of the inflammatory markers including LDH and CRP and the d- dimer was at 1.2 4 hemoptysis secondary to above 5 shortness of breath secondary to above Plan: Patient has remained stable in the last 24 hours, no acute events, but the chest pain or hemoptysis, she has been transitioned to oral eliquis, no evidence of heart strain on the echocardiogram, she is tolerating ambulation, she is maintaining stable oxygenation on room air, stable for discharge home from pulmonary perspective follow up with dr. feldman in the office in 3-4 weeks. I performed a history & physical examination of the patient and discussed their management with my nurse practitioner, Zoila Campo. I reviewed the nurse practitioner's note and agree with the documented findings and plan of care. Lung sounds are positive for diminished breath sounds The findings and the impression was discussed with the patient. I attest to the documentation by the nurse practitioner. Time with Patient: Less than 30
--- NOTE | 2020-10-24 08:56 | P.DS ---
Providers Date of admission: 10/19/20 16:30 Expected date of discharge: 10/23/20 Attending physician: Kacey Irizarry Consults: 10/19/20 16:27 Consult Physician Urgent Consulting Provider: Calos Navarrete Consult Reason/Comments: PE, covid pneumonia Do you want consulting provider notified?: Yes 10/19/20 16:28 Consult Physician Urgent Consulting Provider: Jensen Preciado Consult Reason/Comments: PE Do you want consulting provider notified?: Yes Primary care physician: Stated None Hospital Course: Final diagnosis Acute bilateral lower lobe pulmonary embolism with the potential of a pulmonary infarct involving the right lower lobe secondary to recent Covid 19 infection Recent Covid 19 infection on 10/09/2020 hemoptysis secondary to assessment #1 Gastroesophageal reflux disease/gastritis DVT prophylaxis GI prophylaxis Full code Discharge disposition Patient is being discharged in a stable condition with guarded prognosis to home. Patient will follow-up with Dr. Mcnally in the outpatient setting upon discharge. Patient also instructed to follow-up with pulmonary in the outpatient setting. Patient has been started on Eliquis and was also provided with a coupon for 1 free month. Total time taken is greater than 35 minutes. Hospital course 40-year-old female presenting to the emergency Department with complaints of shortness of breath, coughing up blood has been worsening over the past few days. Patient was diagnosed with Covid on October 09, she was having the normal fever, bodyaches and chills along with her cough. Patient states over the last 2 days she feels like her shortness of breath is getting worse and she is having intermittent pains when she has coughing. She states today while she was coughing she noticed a little bit of blood in her sputum as well. She states she feels like it's hard to get in a deep breath. She does admit to some nausea, no vomiting, no more fevers. She denies history of asthma, she is a nonsmoker, no heart disease history. Upon arrival to the ER, she is afebrile, tachycardia at 114, 95% on room air. She was diagnosed on October 09. No more fevers however she is right tachycardia at 114. EKG shows sinus tach, no other acute process. Chest x-ray shows low lung volumes, patchy bibasilar infiltrates. Blood work revealed normal white count, CRP is elevated at 47, LDH is 651. Lactic acid is normal at 1.1. D-dimer did come back elevated at 1.21. CTA was ordered which revealed multifocal patchy groundglass infiltrates greatest in the lower lungs, positive for PE involving segmental and subsegmental branches of the right lower lobe. Patient vital signs remained stable, 95% on room air. She was started on high- dose heparin. 10/21/2020 Patient is seen and evaluated in room at bedside; continues to complain of severe chest pain which is relieved by IV narcotics; remains on oral anticoagulants. She is feeling less short of breath. Her oxygenation is adequate and the patient's pulse ox is 91% on room air oxygen. She is taking anticoagulants without any side effects or complications. No bleeding complication for now. The patient is taking Eliquis 10 mg by mouth twice a day and she will continue the anticoagulation for now. No other issues. No leg swelling. She does have a popliteal DVT. Echocardiogram showed a preserved LV function with an ejection fraction of 60- 65%. hematology and oncology have evaluated the patient and recommending oral anticoagulation with further hypercoagulable workup as an outpatient. Patient is still having pain across her right chest and side of the pulmonary infarction the patient is taking a combination of [place] 5 and Toradol 15 mg IV push every 6 hours. no hemoptysis. Pulmonary service recommending to continue current pain management and continued monitoring till chest pain is controlled 10/22/2020 Patient is seen and evaluated in room at bedside; admitted for pulmonary embolism/pulmonary infarction. The patient's is currently using incentive spirometer. The patient is on Eliquis for long-term anticoagulation. She was started on 10 mg by mouth twice a day. She was having poor respiratory efforts because of pleuritic pain on the right and the patient was given Toradol. A repeat chest x-ray was also done that showed some atelectatic changes in lung bases. Lung volumes were small. No evidence of any pleural effusion. No evidence of any consolidation in the right lung base. This morning, the patient is on room air oxygen and her pulse ox is around 94%. No tachycardia. No fever. Patient has been adequately anticoagulated but remains in severe pain requiring IV pain medication possibly secondary to extensive PE/pulmonary infarction; patient's discharge is held by pulmonary service to continue with IV pain medication for another 24 hours 10/23/2020 She was seen and evaluated and follow-up this morning with no acute overnight issues. Patient has been started on Eliquis and will continue in the outpatient setting. Patient will also be following up with Dr. Andrews along with Dr. Landon moeller in the outpatient setting. Patient is resting comfortably on room air and denies any worsening shortness of breath. Patient instructed to monitor for fevers and treat with Tylenol and/or Motrin. patient also has an incentive spirometer at the bedside and instructed to use at least 10 times every hour while awake. Currently no reports of chest pain, shortness of breath, or palpitations. Patient is afebrile. No reports of nausea or vomiting and patient is tolerating diet. Patient will be discharged home today. On exam vital signs are stable. Cardio S1, S2 are muffled. Respiratory system shows diminished breath sounds at the bases with no wheezing or rhonchi noted. Abdomen is soft and nontender. Nervous system shows no focal deficits. Please refer to medication reconciliation sheet for a list of medications. Patient Condition at Discharge: Stable Plan - Discharge Summary Discharge Rx Participant: No New Discharge Prescriptions: New Apixaban [Eliquis Starter Pack (for VTE)] 0 mg PO DIRECTED 30 Days #1 pack Discharge Medication List Apixaban [Eliquis Starter Pack (for VTE)] 0 mg PO DIRECTED 30 Days #1 pack 0 10/20/20 [Rx] Follow up Appointment(s)/Referral(s): Korey Mcnally MD [REFERRING] - 1-2 Days Calos Navarrete MD [STAFF PHYSICIAN] - 11/17/20 10:00 am (Please call to make a follow-up appointment) Patient Instructions/Handouts: Pulmonary Embolism (DC) Activity/Diet/Wound Care/Special Instructions: Eliquis: Patient given free 30 day coupon and then $10 copay/month card to use after that. Discharge Disposition: HOME SELF-CARE
== END 2020-10-23 12:15 | disposition home or self-care (01) | DRG 175 ==
LOC: EC 13:04 → 3SCARD 16:30
PROVIDERS: ADMIT Hospitalist; ATTEND Hospitalist
DX: I26.99 Other pulmonary embolism without acute cor pulmonale (principal); J12.82 Pneumonia due to coronavirus disease 2019; I27.20 Pulmonary hypertension, unspecified; B94.8 Sequelae of other specified infectious and parasitic diseases; Z20.822 Contact with and (suspected) exposure to COVID-19; K21.9 Gastro-esophageal reflux disease without esophagitis; K29.70 Gastritis, unspecified, without bleeding; Z90.49 Acquired absence of other specified parts of digestive tract; Z98.51 Tubal ligation status; Z87.19 Personal history of other diseases of the digestive system; Z87.42 Personal history of other diseases of the female genital tract; Z90.710 Acquired absence of both cervix and uterus; Z82.49 Family history of ischemic heart disease and other diseases of the circulatory system; Z82.3 Family history of stroke; Z83.2 Family history of diseases of the blood and blood-forming organs and certain disorders involving the immune mechanism
CPT/HCPCS: 36415; 71045; 71275; 80048; 80053; 83605; 83615; 83735; 84145; 85025; 85379; 85598; 85610; 85613; 85730; 85732; 86140; 86146; 86147; 87635; 93005; 93306; 93970; 94640; 96360; 96361; 96374; 99291

== ENCOUNTER → 2020-12-11 | Outpatient (CLI) | payer OTHER ==
[2020-12-11 13:36] LABS: Partial Thromboplastin Time 24.3 sec (22.0-30.0); Prothrombin Time 10.3 sec (9.0-12.0)
[2020-12-11 13:38] LABS: ALT 29 U/L (4-34); AST 31 U/L (14-36); African American GFR (CKD) >90 (>60 ml/min/1.73 sqM); Albumin 4.3 g/dL (3.5-5.0); Albumin/Globulin Ratio 1.4; Alkaline Phosphatase 102 U/L (38-126); Anion Gap 7 mmol/L; Bilirubin,Unconjugated 0.6 mg/dL (0.0-1.1); Blood Urea Nitrogen 16 mg/dL (7-17); Calcium 9.3 mg/dL (8.4-10.2); Carbon Dioxide 27 mmol/L (22-30); Chloride 106 mmol/L (98-107); Cholesterol 220 mg/dL (<200); Globulin 3.1 g/dL; Glucose 86 mg/dL (74-99); HDL Cholesterol 47 mg/dL (40-60); LDL Cholesterol,Calculated 146 mg/dL (0-99); Non-African American GFR(CKD) >90 (>60 ml/min/1.73 sqM); Potassium 4.1 mmol/L (3.5-5.1); Sodium 140 mmol/L (137-145); Total Bilirubin 0.5 mg/dL (0.2-1.3); Total Protein 7.4 g/dL (6.3-8.2); Triglycerides 137 mg/dL (<150); Uric Acid 4.9 mg/dL (3.7-7.4)
[2020-12-11 18:25] LABS: Basophils # (A) 0.03 X 10*3/uL (0.00-0.10); Basophils % (A) 0.6 %; Eosinophils # (A) 0.12 X 10*3/uL (0.04-0.35); Eosinophils % (A) 2.6 %; HCT 39.5 % (37.2-46.3); Lymphocytes # (A) 1.36 X 10*3/uL (0.90-5.00); Lymphocytes % (A) 29.4 %; MCH 29.8 pg (27.0-32.0); MCHC 32.9 g/dL (32.0-37.0); MCV 90.6 fL (80.0-97.0); Mean Platelet Volume 9.9 fL (9.5-12.2); Monocytes # (A) 0.33 X 10*3/uL (0.20-1.00); Monocytes % (A) 7.1 %; Neutrophils # (A) 2.76 X 10*3/uL (1.80-7.70); Neutrophils % (A) 59.9 %; Platelet Count 320 X 10*3/uL (140-440); RBC 4.36 X 10*6/uL (4.10-5.20); RDW 14.6 % (11.5-14.5); WBC 4.62 X 10*3/uL (4.50-10.00)
[2020-12-11 19:44] LABS: Hepatitis B Surface Antibody Reactive (Non-Reactive); Hepatitis B Surface Antigen Non-Reactive (Non-Reactive); Hepatitis C IgG Antibody Non-Reactive (Non-Reactive)
[2020-12-11 20:30] LABS: EBV-EA (IgG) 0.5 AI; EBV-EBNA(IgG) >8.0 AI; EBV-VCA (IgG) 2.5 AI; EBV-VCA (IgM) 0.3 AI
[2020-12-11 20:44] LABS: HIV 2 AB Non-Reactive (Non-Reactive); HIV AB P24 Non-Reactive (Non-Reactive); HIV P24 AG Non-Reactive (Non-Reactive)
[2020-12-11 21:11] LABS: Urine Creatinine 156.6 mg/dL
[2020-12-11 21:31] LABS: Hemoglobin A1C 4.9 % (4.0-6.0)
== END | disposition home or self-care (01) ==
LOC: LABWHC1 11:36
PROVIDERS: ATTEND Internal Medicine Nephrology
DX: Z00.5 Encounter for examination of potential donor of organ and tissue (principal)
CPT/HCPCS: 36415; 80053; 80061; 81025; 82043; 82248; 82570; 82610; 83036; 84100; 84550; 85025; 85610; 85730; 86644; 86645; 86663; 86664; 86665; 86704; 86706; 86780; 86803; 87086; 87340; 87390

== ENCOUNTER → 2024-03-04 | Outpatient (CLI) | payer BC ==
[2024-03-04 18:33] LABS: Basophils # (A) 0.04 X 10*3/uL (0.00-0.10); Basophils % (A) 0.6 %; Eosinophils # (A) 0.14 X 10*3/uL (0.04-0.35); HCT 41.8 % (37.2-46.3); HGB 13.9 g/dL (12.0-15.0); Lymphocytes # (A) 1.37 X 10*3/uL (0.90-5.00); Lymphocytes % (A) 19.5 %; MCH 31.2 pg (27.0-32.0); MCHC 33.3 g/dL (32.0-37.0); MCV 93.7 FL (80.0-97.0); Mean Platelet Volume 9.8 FL (9.5-12.2); Monocytes # (A) 0.45 X 10*3/uL (0.20-1.00); Monocytes % (A) 6.4 %; NRBC Per 100 WBC 0 X 10*3/uL (0.00-0.01); Neutrophils # (A) 4.99 X 10*3/uL (1.80-7.70); Neutrophils % (A) 70.8 %; Platelet Count 304 X 10*3/uL (140-440); RBC 4.46 X 10*6/uL (4.10-5.20); RDW 12.5 % (11.5-14.5); WBC 7.04 X 10*3/uL (4.50-10.00)
[2024-03-04 18:48] LABS: ALT 17 U/L (8-44); AST 18 U/L (13-35); Albumin 4.2 g/dL (3.8-4.9); Albumin/Globulin Ratio 1.56 Ratio (1.60-3.17); Alkaline Phosphatase 110 U/L (41-126); Blood Urea Nitrogen 12.4 mg/dL (9.0-27.0); Calcium 9.4 mg/dL (8.7-10.3); Chloride 102 mmol/L (96-109); Globulin 2.7 g/dL (1.6-3.3); Glucose 74 mg/dL (70-110); Potassium 4.3 mmol/L (3.5-5.5); Sodium 137 mmol/L (135-145); Total Bilirubin 0.4 mg/dL (0.3-1.2); Total Protein 6.9 g/dL (6.2-8.2)
== END | disposition home or self-care (01) ==
LOC: LABWHC1 15:02
PROVIDERS: ATTEND Family Medicine
DX: R10.31 Right lower quadrant pain (principal)
CPT/HCPCS: 36415; 80053; 85025

== ENCOUNTER → 2024-03-04 | Outpatient (CLI) | payer BC ==
--- NOTE | 2024-03-08 13:28 | CT ---
EXAMINATION TYPE: CT abdomen pelvis w con DATE OF EXAM: 03/04/2024 COMPARISON: None INDICATION: RLQ PAIN DLP: 1479 mGycm, Automated exposure control for dose reduction was used. CONTRAST: 100 mL of Isovue 300. Study performed with Oral Contrast TECHNIQUE: Axial images were obtained from above the diaphragm to the pubic rami in the axial plane a t 5 mm thick sections. Reconstructed images are reviewed on the computer in the coronal plane. FINDINGS: Limited CT sections are obtained the lung bases. The lung bases are clear. CT ABDOMEN: Liver: Normal Spleen: Normal Pancreas: Normal Adrenal glands: The adrenal glands are normal. Gallbladder: Surgically absent Kidneys: Left kidney not identified. Right kidney appears unremarkable.. No hydronephrosis is present . No cysts are present. Delayed images through the right kidney appears unremarkable. Aorta: Normal Inferior vena cava: Normal. CT PELVIS: Loops of bowel within the abdomen and pelvis are normal. The loops of bowel lacking oral contrast are incompletely distended limiting their evaluation. Appendix: Normal as visualized. No inflammatory changes or dilatation is evident. Urinary bladder: Normal. Genitourinary structures: Uterus is not identified. Some free fluid is within the posterior pelvis. T here appears to be a1.3 cm cyst in the left adnexa. Right ovary on the coronal plane image appears no rmal. Osseous structures: No suspicious lytic or sclerotic lesions. IMPRESSION: 1. Solitary right kidney. 2. Normal appendix. 3. No suspicious abnormality to account for right lower quadrant pain 4. Mild to moderate free fluid within the posterior pelvis. 5. Left renal cyst
== END | disposition home or self-care (01) ==
LOC: RADCTMAIN 14:43
PROVIDERS: ATTEND Family Medicine
DX: N28.1 Cyst of kidney, acquired (principal); R10.31 Right lower quadrant pain; R93.41 Abnormal radiologic findings on diagnostic imaging of renal pelvis, ureter, or bladder; Q60.0 Renal agenesis, unilateral
CPT/HCPCS: 74177; Q9967